=== PATIENT | female | born 1940 | race Caucasian/White ===

== ENCOUNTER 2024-06-23 14:40 | Inpatient (IN) | payer OTHER, BC ==
[2024-06-23 16:09] VITALS: BMI 17.8
[2024-06-23] MEDS ORDERED: HYDRALAZINE HCL 25 MG TABLET PO PRN (16:30)
[2024-06-23] MEDS ORDERED: CALM GUMMIES PO PRN (16:34)
[2024-06-23] MEDS ORDERED: CETIRIZINE HCL 5 MG TABLET PO PRN (16:36)
[2024-06-23] MEDS ORDERED: POLYETHYL GLY 3350 17 GM/DOSE PO PRN (16:37)
[2024-06-23] MEDS ORDERED: LACTULOSE 20 GM/30 ML UCUP PO PRN (16:38)
[2024-06-23] MEDS: SENOSIDES 8.6 MG TAB PO SCH (20:02)
[2024-06-23] MEDS: ZINC OXIDE 20% OINTMENT 60gm TOP SCH (20:02)
[2024-06-23] MEDS: IBUPROFEN 200 MG TAB PO PRN (20:11)
[2024-06-24 05:28] LABS: Absolute Eosinophils 0.4 K/uL (0-0.5); Absolute Lymphocytes (CBC) 1.8 K/uL (0.7-4.9); Absolute Monocytes 0.5 K/uL (0.1-1.3); Absolute Neutrophil 2.6 K/uL (1.8-8.0); Basophils % 0.8 % (0-1.3); Eosinophils % 7.4 % (0-4.4); Hematocrit 29.5 % (36.0-45.0); Hemoglobin 10.1 g/dL (12.0-15.0); Lymphocytes % 33.7 % (15.3-44.8); MCH 30.8 pg (27.0-35.0); MCHC 34.2 g/dL (32.0-36.0); MCV 90.1 fL (80-100); MPV 7.8 fL (7.6-11.3); Monocytes % 10.1 % (3.3-12.3); Nucleated Red Blood Cells % 0.1 % (0-0); Platelets 209 thou/uL (152-406); RBC Red Blood Cell Count 3.28 M/uL (3.86-4.86); Red Cell Distribution Width 15.2 % (12.1-15.2)
[2024-06-24 05:56] LABS: Albumin 2.8 g/dL (3.4-5.0); Anion Gap 5.3 mEq/L (5.0-15.0); Magnesium 2.2 mg/dL (1.6-2.4); Potassium 4.3 mEq/L (3.5-5.1); Prealbumin 14.5 mg/dL (20-40)
[2024-06-24] MEDS: ENOXAPARIN 30 MG/0.3 ML SQ SCH (07:29)
[2024-06-24 08:29] LABS: Specific Gravity 1.009 (1.005-1.030); Sqamous Epithelial None Seen /HPF (None Seen); Urine Bacteria <20 /HPF (<20); Urine Bilirubin NEGATIVE (Negative); Urine Blood Negative (Negative); Urine Clarity Clear (Clear); Urine Color Light-Yellow (Yellow); Urine Culture Reflex Order NOT NEEDED; Urine Glucose NEGATIVE (Negative); Urine Ketones NEGATIVE (Negative); Urine Micro Reflex YN NO BILL MICROSCOPIC; Urine Nitrite NEGATIVE (Negative); Urine Protein NEGATIVE (Negative); Urine RBC None Seen /HPF (None Seen); Urine Urobilinogen Normal (Normal); Urine WBC <5 /HPF (<5); Urine pH 6.5 (5.0-7.0)
[2024-06-24] MEDS: CYANOCOBALAMIN 1,000 MCG TAB PO SCH (09:32)
[2024-06-24] MEDS: LACTOBACILLUS/ACIDOPHILUS TAB PO SCH (09:32)
[2024-06-24] MEDS: ASCORBIC ACID 500 MG TABLET PO SCH (09:33)
[2024-06-24] MEDS: MULTIVITAMIN TAB PO SCH (09:33)
[2024-06-24] MEDS: VITAMIN D 5,000 UNIT CAP PO SCH (09:33)
[2024-06-24] MEDS: FERROUS SULFATE 325 MG TAB PO SCH (09:33)
[2024-06-24] MEDS: POTASSIUM CL SA 10 MEQ TAB PO SCH (09:33)
[2024-06-24] MEDS: LOSARTAN POTASSIUM 50 MG TABLET PO SCH (09:34)
[2024-06-24] MEDS: ACETAMINOPHEN 500 MG TAB PO PRN (09:36)
[2024-06-24] MEDS: TRAMADOL HCL 50 MG TAB PO PRN (12:34)
--- NOTE | 2024-06-24 12:51 | HP ---
Date of Admission: 06/23/2024 Date of service: 06/24/2024 Time Of Service: 9:00 a.m. Chief Complaint: "My back is hurting after I broke some bone." History Of Present Illness: Ms. Bradley is an 83-year-old patient with hypertension, osteoporosis, ESBL UTI, and multiple lumbar compression fractures, who had a kyphoplasty on multiple levels. She had a left hip fracture and surgical intervention and presented to [facility] on 04/12/2024 with lower back pain after falling. She was diagnosed again with several lumbar level fractures and underwent kyphoplasty of L3 levels on 06/[address] Chapa. She was then sent to [facility] for several weeks for physical therapy, but did not adequately return to baseline. She fell again, suffering a T12 compression fracture causing further physical decline. Dr. Chapa decided against surgical intervention and has been treating the patient for healing by secondary intention with therapy and pain management. She had an LSO brace placed. Due to her multiple falls and fractures, is currently getting depressed about her situation and would like to be able to return to her prior level of functioning. She does have issues including malnutrition, renal insufficiency, anemia, and continued need to significantly decrease her risk of falling. She is at high risk of multiple bone fractures due to osteoporosis. She was previously in the assisted living facility requiring minimum assistance with bed mobilization, donning and doffing of her LSO, and ambulating about 25 feet with a rolling walker. However, due to significant pain rated up to 7/10 while trying to standing and ambulating, she did have a significant debility and decline. Furthermore, she experienced an episode of left facial droop, which resolved fairly quickly, identified as a TIA and CT scan workup was negative. In addition, she has had orthostatic hypotension requiring IV fluids. She was eventually medically cleared for aggressive therapy and is now admitted to inpatient rehabilitation unit for physical, occupational, and speech therapy to help her return to her prior level of functioning and reduce risk of rehospitalization. Past Medical History: Includes hip fracture in the past with surgical intervention, multiple kyphoplasties at multiple levels, hypertension, osteoporosis, ESBL UTI, and dehydration. X-ray/imaging: Chest x-ray on 06/14, no acute pulmonary process. Head CT on 06/16, unremarkable noncontrast head CT scan and CT scan of the spine shows a compression deformity at T12 with fracture cleft paralleling the superior endplate without significant height loss. There is mild retropulsion of the posterior superior endplate into the central canal measuring 2-3 mm. Allergies: NO KNOWN DRUG ALLERGIES. Medications: Tylenol 500 mg every 6 hours as needed, vitamin C 500 mg daily, Tums 500 mg twice daily, Zyrtec 10 mg daily, vitamin D 5000 units daily, B12 1000 mcg daily, Lovenox 30 mg subcutaneously daily, ferrous sulfate 325 mg daily, Apresoline 25 mg 3 times daily, Motrin 400 mg 4 hours as needed, Lactinex 1 tablet daily, lactulose 20 g daily, lidocaine patch apply topically daily to the T12 lumbar region, Cozaar 25 mg daily, Milk of Magnesia 30 mg daily as needed, melatonin 6 mg at bedtime and as needed, Centrum Silver 1 tablet daily, Zofran 4 mg daily, Glycolax 17 g daily, potassium 20 mEq daily, Senokot 8.6 mg twice daily, zinc oxide 20% apply topically twice daily. Family History: Noncontributory. Social History: As noted, she did live in assisted living facility and is hoping to return to her prior level of functioning. Code Status: Full code. Laboratory Studies: White blood cell count 5.4, hemoglobin 10.1, platelets 209, neutrophils 48. Sodium 141, potassium 4.3, chloride 110, carbon dioxide 30, BUN 21, creatinine 0.95, glucose 90, calcium 8.9. Magnesium 2.2. Albumin 2.8, prealbumin 14.5. Urinalysis is completely normal. Current Level Of Functioning: Currently, Ms. Bradley is at setup assistance for eating. Oral hygiene is contact guard. Toileting, moderate assistance. Showering, maximal assistance. Upper body dressing, moderate assistance. Lower body dressing at a maximum assistance level. Donning and doffing footwear, maximum assistance. Rolling left to right, moderate assistance. Sit to stand transfer, moderate assistance. Lying to sitting on side of bed, moderate assistance. Xkx-hy-mfcot transfer from bed to chair and to toilet, moderate assistance. Ambulation, she was at a moderate assistance level with a rolling walker ambulated 25 feet. Review of Systems: Denies any fevers or chills. No nausea or vomiting. Admits to the moderate back pain and knee pain. Some diffuse weakness in the legs and arms, mild shortness of breath. Otherwise, mild depressive symptoms and no other positives on the systems review. Physical Examination: Vital Signs: Blood pressure 124/56, pulse of 73, respiratory rate 16, temperature 97.4. General: Ms. Bradley is sitting in a chair. She is doing therapy. She had just come back from outside. She appear slightly underweight. BMI is actually 17.8 with a weight of 170 pounds, height of 5 feet 8. HEENT: Otherwise, she is normocephalic, atraumatic. Sclerae appear anicteric. Oropharynx pink, moist. Neck: Supple. Chest: Clear. Musculoskeletal: She does have a scoliotic posture with her curvature to the left and then from the mid spine and curving back towards the right and otherwise intact. Lack of hemostasis. She does have mild bruising. Her strength is diffusely weak around 3 to 4/5 proximally and distally in the lower and upper extremities. Decreased stocking glove loss to light touch temperature. Rehab And Medical Assessment And Plan: Ms. Bradley is admitted to the inpatient rehabilitation unit with impairment category 09, orthopedic. Her impairment group code is 08.9, other orthopedic. Etiologic diagnosis T12 compression fracture. Her comorbidities are anemia, debility, decreased mobility, decreased physical functioning, depression, hypertension, recurrent falls with multiple lumbar fractures, status post kyphoplasty, and renal insufficiency. Plan: 1. She will have physical, occupational, and speech therapy for 3.5 hours, 5 of 7 days. We will address her pain with Tylenol and lidocaine patch. May add tramadol and very gentle amount or low-dose [place] as needed. For issues of DVT prophylaxis will be Lovenox 30 mg subcutaneously daily. For her anemia, ferrous sulfate 325 mg daily, Apresoline for hypertension, and addressing partly fluid management. Vitamin D for low vitamin D level. She has many probiotics on board. 2. Continue cellulose for her constipation lidocaine patch for pain, Cozaar added for hypertension control. She has Milk of Magnesia, Zofran for nausea, potassium replacement on board, zinc oxide to help with immune function. Comorbidities That Are Impacting Rehabilitation: She is significantly debilitated and has had advanced osteoporosis with multiple fractures occurring very easily, especially in the lumbar region. She does have a TLSO brace in place that we will continue. She is out of bed and mobilizing. Fall precautions are strictly adhered to as if she falls, she has a high chance of more bone fractures. She is somewhat depressed and may consider making adjustments and changes to the medication that would include antidepressant medication such as Cymbalta, perhaps may start 20 mg daily. She is in assisted living at this point. She may require a lot of help if she is to be discharged back to that facility. She is at high risk of continued falls. May have to go to retirement. However, the goal will be to go back to assisted living and as independent as possible with therapy to continue. Rehab Specific Plan: Ms. Bradley will have physical, occupational, and speech therapy to help with her ability to transfer from bed to chair, to a wheelchair, to a walker, to toilet, and to shower; to perform toileting and showering, to dress upper and lower body, and donning and doffing footwear. Speech will help her with making some decisions, taking medications appropriately, making safe decisions in terms of her transfers and mobilization using a walker properly and helping mitigate against fall risk. Ms. Bradley has a good understanding of the process of admission to the inpatient rehabilitation facility, how she will benefit from physical, occupational, and speech therapy. She will have 24 hours a day, 7 days a week skilled rehabilitation nursing to address her acute issues and communicate with physician. She will have daily physician evaluation and management for integrating her physical therapy with her medical issues and adjusting appropriately so she will have a typical benefit of inpatient rehabilitation. She will have social service evaluation and management for discharge planning, home equipment, continuing therapy, and physician followup. If need be, additional help from the hospitalist service, cardiology service, pulmonary service, and orthopedic service will be consulted. Barriers To Discharge: Currently, she has advanced osteoporosis with high risk of multiple bone fractures and she has had multiple after falling, so fall precautions should be strictly adhered to and wherever she goes, she would likely require a lot of help to reduce her risk of falls and would benefit from 24 hours supervision at least as she goes home. Length Of Stay: About 14 days. Disposition: For her to be back home with assisted living. Prognosis: Good. Rehab Specific Goals: 1. Become independent with upper and lower body dressing, donning and doffing of footwear. 2. Independently mobilize a wheelchair 250 feet. 3. Independently or at least close to as possible mobilize a rolling walker household distances around 50 feet. She may have difficulty going up and down steps, perhaps with assistance up and down 5 steps. 4. To be able to perform all cognitive functioning as independently as possible. The above goals were reviewed with Ms. Bradley. She is in agreement. By signing this document, I acknowledge I first performed a full physical examination on Ms. Bradley no later than 24 hours after her admission to the inpatient rehabilitation facility and determined that she is able to tolerate the above course of treatment at an intensive level for reasonable period of time. A detailed individualized plan of care for her will be completed by hospital day 4 based on the preadmission screen, history and physical, and therapy evaluations. HUGO Voice ID: [id number] JEANNETTE
[2024-06-24] MEDS: MAGNESIUM HYDROXIDE 8% 30 ML PO PRN (13:41)
[2024-06-24] MEDS: GABAPENTIN 100 MG CAP PO SCH (13:41)
[2024-06-24] MEDS: LIDOCAINE 4% PATCH TOP ONE (13:41)
[2024-06-24] MEDS: ENSURE PLANT-BASED PROTEIN VANILLA 330 ML CAN PO SCH (19:51)
[2024-06-25] MEDS: LIDOCAINE 4% PATCH TOP SCH (10:06)
[2024-06-25] MEDS: POTASSIUM CL SA 10 MEQ TAB PO SCH (10:07)
--- NOTE | 2024-06-25 14:41 | RAD REPORT ---
EXAM: XR of the abdomen HISTORY: Abdominal pain constipation COMPARISON: None FINDINGS: XR of the abdomen shows a nonspecific, nonobstructive bowel gas pattern. Moderate stool ret ention throughout the colon. [place] nonspecific calcification to the left of the L3 vertebral body may be a renal stone. Cholecystectomy clips. Vertebroplasty cement is noted at L1, L2 and L4. Proximal left humerus hardware. IMPRESSION: Prominent diffuse stool retention compatible with constipation. [place] stone suspected probably in the genitourinary system to the left of the L3 vertebral body.
[2024-06-25] MEDS: MELATONIN 3 MG TABLET PO PRN (20:48)
[2024-06-25] MEDS: FLEET ENEMA ADULT PR ONE (20:52)
--- NOTE | 2024-06-25 23:03 | PN ---
Date of Progress Note: 06/25/2024 Time Of Service: 1:35 p.m. Subjective: Ms. Bradley is reporting some pain in the right lower quadrant area. She did have pain p atch in the left and in the back where she has T12 compression fracture and that has improved. She i s still, however, having some difficulty as she does have a back brace in place that does hold high o n the chest and she has kyphosis which is making it somewhat painful as she mobilizes. She does requ est frequently for the brace to be removed. Objective: Some mild arthralgias, myalgias. Again, pain in the right lower quadrant. Some difficul ty moving legs and arms and mild depression of her mood. Physical Examination: Vital Signs: Blood pressure in terms of orthostatics while lying 144/70, pulse 54, while sitting 138 /67, pulse 61, and while standing 124/60, pulse 73. No significant symptomatic complaints there. In terms of her examination, she does have kyphotic posture. HEENT: She is otherwise normocephalic, atraumatic. Neuro: She does have back brace in place and has some scoliosis where she leans towards the left as she is sitting in a chair. Mild edema in the lower extremities, unchanged. Laboratory Studies: No new laboratory studies compared to yesterday. Today, a KUB study was done as the patient was worried about retained stool. The study did identify prominent diffuse stool retent ion compatible with constipation. There is an oblong stone suspected probably in the genitourinary s ystem on the left at the L3 vertebral body. Vertebroplasty cement noted at L1, L2, and L4 and cholec ystectomy clips noted to be in place. Progress Made With Physical And Occupational Therapy: Today with physical therapy, she ambulated 50 feet and 100 feet with a rolling walker with partial assistance. She did attempt to go up and down a ramp 10 feet, up and down 5 feet, moderate assistance required. She did parallel bars 3 rounds 1 mi nute intervals and she did 30 feet back to the room using a rolling walker with partial assistance. With occupational therapy, continue to improve lower extremity strength and upper extremity strength with exercises. Assessment: Ms. Bradley is an 83-year-old patient admitted to the rehabilitation unit with T12 compre ssion fracture. She has multiple fractures treated by kyphoplasty, but the T12 is healing by seconda ry intention. She does have constipation per KUB and may benefit from a Fleet enema. Her comorbidit ies do include decreased mobility, decreased physical functioning, depression, hypertension, recurren t falls, of course lumbar fracture, status post kyphoplasty, and renal insufficiency. Plan: She will continue with physical and occupational therapy along with speech therapy, which day, she actually did recall 3 of 3 items to remember after 6 minutes and she did do convergent naming of concrete categories with 90% accuracy and minimum assistance. All those of course will be continued . Her comorbid conditions addressed again, DVT prophylaxis with Lovenox, Ensure Enlive for malnutrit ion, gabapentin for neuropathic pain, hydralazine for fluid and blood pressure control, Cozaar for bl ood pressure control, melatonin for insomnia, Centrum Silver also on board, tramadol and Tylenol for pain. MARIALUISA/CHANDAL Voice ID: [id number] Report ID: [id number]
[2024-06-26 06:43] LABS: Absolute Eosinophils 0.4 K/uL (0-0.5); Absolute Lymphocytes (CBC) 2.2 K/uL (0.7-4.9); Absolute Monocytes 0.7 K/uL (0.1-1.3); Absolute Neutrophil 2.6 K/uL (1.8-8.0); Basophils % 0.6 % (0-1.3); Hematocrit 31.5 % (36.0-45.0); Hemoglobin 10.3 g/dL (12.0-15.0); Lymphocytes % 36.5 % (15.3-44.8); MCHC 32.8 g/dL (32.0-36.0); MCV 91.4 fL (80-100); MPV 9.3 fL (7.6-11.3); Monocytes % 12.3 % (3.3-12.3); Neutrophils % 43.6 % (41.7-73.7); Platelets 178 thou/uL (152-406); RBC Red Blood Cell Count 3.45 M/uL (3.86-4.86)
[2024-06-26 07:00] LABS: Albumin 3.1 g/dL (3.4-5.0); Anion Gap 7.6 mEq/L (5.0-15.0); Magnesium 2.4 mg/dL (1.6-2.4); Potassium 4.6 mEq/L (3.5-5.1); Prealbumin 18.1 mg/dL (20-40)
[2024-06-26] MEDS: LIDOCAINE 4% PATCH TOP SCH (10:17)
[2024-06-26] MEDS: NA CHLORIDE 0.9% 1,000 ML IV SCH ×2 (17:00→20:34)
[2024-06-26] MEDS ORDERED: NA CHLORIDE 0.9% 250 ML IV PRN (18:30)
[2024-06-26] MEDS: NA CHLORIDE 0.9% 250 ML IV ONE (20:18)
[2024-06-27 06:52] LABS: Anion Gap 6.5 mEq/L (5.0-15.0); Magnesium 2.1 mg/dL (1.6-2.4); Potassium 4.5 mEq/L (3.5-5.1)
--- NOTE | 2024-06-27 13:31 | P.RH.PN ---
Estimated Length of Stay: 14 Expected Discharge Date: 07/01/24 Discharge Disposition Plan: Home Family Support: Yes Vital Signs: Last Vital Signs Temp 97.8 F 06/27/24 08:00 Pulse 62 06/27/24 08:00 Resp 16 06/27/24 08:00 BP 156/76 H 06/27/24 08:00 Pulse Ox 98 06/27/24 08:00 Laboratory: Laboratory Last Values WBC 6.00 thou/uL (4.3-10.9) 06/26/24 04:34 RBC 3.45 M/uL (3.86-4.86) L 06/26/24 04:34 Hgb 10.3 g/dL (12.0-15.0) L 06/26/24 04:34 Hct 31.5 % (36.0-45.0) L 06/26/24 04:34 MCV 91.4 fL (80-100) 06/26/24 04:34 MCH 30.0 pg (27.0-35.0) 06/26/24 04:34 MCHC 32.8 g/dL (32.0-36.0) 06/26/24 04:34 RDW 15.0 % (12.1-15.2) 06/26/24 04:34 Plt Count 178 thou/uL (152-406) 06/26/24 04:34 MPV 9.3 fL (7.6-11.3) 06/26/24 04:34 Neutrophils % 43.6 % (41.7-73.7) 06/26/24 04:34 Lymphocytes % 36.5 % (15.3-44.8) 06/26/24 04:34 Monocytes % 12.3 % (3.3-12.3) 06/26/24 04:34 Eosinophils % 7.0 % (0-4.4) H 06/26/24 04:34 Basophils % 0.6 % (0-1.3) 06/26/24 04:34 Absolute Neutrophils 2.6 K/uL (1.8-8.0) 06/26/24 04:34 Absolute Lymphocytes 2.2 K/uL (0.7-4.9) 06/26/24 04:34 Absolute Monocytes 0.7 K/uL (0.1-1.3) 06/26/24 04:34 Absolute Eosinophils 0.4 K/uL (0-0.5) 06/26/24 04:34 Absolute Basophils 0.0 K/uL (0-0.5) 06/26/24 04:34 Sodium 139 mEq/L (136-145) 06/27/24 06:08 Potassium 4.5 mEq/L (3.5-5.1) 06/27/24 06:08 Chloride 108 mEq/L (98-107) H 06/27/24 06:08 Carbon Dioxide 29 mEq/L (21-32) 06/27/24 06:08 Anion Gap 6.5 mEq/L (5.0-15.0) 06/27/24 06:08 BUN 23 mg/dL (7-18) H 06/27/24 06:08 Creatinine 0.82 mg/dL (0.55-1.02) 06/27/24 06:08 Est GFR (CKD-EPI) 72 ml/min (=/>90) L 06/27/24 06:08 Glucose 79 mg/dL (74-106) 06/27/24 06:08 Calcium 9.7 mg/dL (8.5-10.1) D 06/27/24 06:08 Magnesium 2.1 mg/dL (1.6-2.4) 06/27/24 06:08 Albumin 3.1 g/dL (3.4-5.0) L 06/26/24 04:34 Prealbumin 18.1 mg/dL (20-40) L 06/26/24 04:34 Urine Color Light-yellow (Yellow) 06/24/24 07:40 Urine Clarity Clear (Clear) 06/24/24 07:40 Urine pH 6.5 (5.0-7.0) 06/24/24 07:40 Ur Specific [place] 1.009 (1.005-1.030) 06/24/24 07:40 Glucose (UA)(Auto) Negative (Negative) 06/24/24 07:40 Urine Ketones Negative (Negative) 06/24/24 07:40 Urine Blood Negative (Negative) 06/24/24 07:40 Urine Nitrite Negative (Negative) 06/24/24 07:40 Urine Bilirubin Negative (Negative) 06/24/24 07:40 Urine Urobilinogen Normal (Normal) 06/24/24 07:40 Ur Leukocyte Esterase Negative [place]/uL (Negative) 06/24/24 07:40 Urine RBC None seen /HPF (None Seen) 06/24/24 07:40 Urine WBC <5 /HPF (<5) 06/24/24 07:40 Ur Squamous Epith Cells None seen /HPF (None Seen) 06/24/24 07:40 Urine Bacteria <20 /HPF (<20) 06/24/24 07:40 Hyaline Casts 0-5 /LPF (None Seen) 06/24/24 07:40 Urine Culture Reflexed Not needed 06/24/24 07:40 Urine Total Protein Negative (Negative) 06/24/24 07:40 Weight: 117 lb Wound Present: No Closed Surgical Incision Present: No Negative Pressure Wound Therapy Present: No Physician Update: Labs reviewed and are stable. BIMS 13, SLUMS 21. Difficulty with vision due to macular degeneration. Chronic cognitive impairment. Transfers at SBA in and out of bed. RW to bath room and covered 20'. She did better with OT today. Toilet transfers and lower body dressing with contact guard assistance. Summary: Patient's care plan and [facility] goals have been reviewed and revised as necessary. Please see the Rehabilitation Signature page for all necessary signatures.
[2024-06-27] MEDS: DULOXETINE 20 MG CAP PO SCH (21:52)
[2024-06-27] MEDS: GABAPENTIN 100 MG CAP PO SCH (21:53)
[2024-06-28] MEDS: MIDODRINE HCL 5 MG TABLET PO SCH (08:41)
--- NOTE | 2024-06-30 14:23 | RAD REPORT ---
EXAMINATION: ONE VIEW CHEST XR CLINICAL INDICATION: Female, 83 years old.,R/O TB for Assisted Living Placement TECHNIQUE: Frontal chest projection is submitted. Examination is limited by patient positioning and t echnique. COMPARISON: 06/25/2024 abdomen radiographs FINDINGS: The lungs are diffusely emphysematous but grossly clear. No pneumothorax or sizable effusion. The he art is normal in size. IMPRESSION: Sequelae of COPD, without other suspicious intrathoracic findings.
[2024-06-30] MEDS: LOSARTAN POTASSIUM 50 MG TABLET PO SCH (20:14)
[2024-06-30] MEDS: TRAMADOL HCL 50 MG TAB PO PRN (20:14)
[2024-06-30] MEDS: ONDANSETRON 4 MG (ODT) TAB PO PRN (20:19)
[2024-06-30] MEDS: CALCIUM CARBONATE CHEW 500MG TAB PO PRN (20:19)
--- NOTE | 2024-06-30 23:09 | PN ---
Date of Progress Note: 06/30/2024 Time Of Service: 1:20 p.m. Subjective: Ms. Bradley is resting in her room in a chair. Therapist at the bedside. She does repor t her leaning to the left which is due to her scoliosis and multiple fractures in the vertebral regio n and she does have kyphosis. She does have a back brace in place. She does say that there is some pain in the back, which is up to about 7 to 8/10, at times even when lying down. Pain seems to be wo rse in the morning and potentially as she has not had pain medications overnight and so pain medicati ons will be adjusted as early as possible in the morning prior to beginning her therapy. Objective: As noted, pain in the back as rated above, some arthritic pain in the knees as well. Oth erwise, denies any fevers, chills, nausea, and vomiting. Physical Examination: Vital Signs: Blood pressure 142/69, pulse 58, respiratory rate 18, temperature 98, oxygen saturation 96%. General: Again, Ms. Bradley is sitting in a chair with speech therapist in front. HEENT: She is normocephalic, atraumatic. Sclerae anicteric. 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 Still appears to be somewhat underweight with BMI of 17.8. Otherwise, no new deficits. Laboratory Studies: No new laboratory studies. X-ray/imaging: There was an x-ray done earlier today. The study showed sequelae of COPD without oth er suspicious intrathoracic findings. Lungs are diffusely emphysematous, but grossly clear. Progress Made With Physical, Occupational, And Speech Therapy: Today, she ambulated 100 feet twice w ith a rolling walker, another 75 feet with minimum to contact guard assistance. Mobilized a wheelcha ir 75 feet with standby assistance and verbal cues. Performed bilateral feet and lower extremity exe rcises 20 reps. She did sit to stand transfers with minimum assistance and verbal cues. With occupa tional therapy, assistance from bed to wheelchair transfer with contact guard assistance, performed s howering with contact guard assistance at that level, especially to clean the buttocks area. With sp eech, she did improve short-term recall, did recall 3 unrelated pictures using memory strategies afte r 5-minute delay. Recalled 2 of 3 on the first attempt, second and third attempts. Assessment: Ms. Bradley is an 83-year-old patient in the rehabilitation unit with T12 compression fra cture. She has scoliosis, kyphosis, and significant back pain where she has multiple vertebral compr ession fractures that were treated with kyphoplasty. The T12 level is healing by secondary intention . She has decreased mobility, decreased physical functioning, malnutrition, hypertension, renal insu fficiency. Plan: 1.She will continue with physical, occupational, and speech therapy for 3.5 hours, 5 of 7 days. 2.We will continue Tylenol and tramadol for pain that is along with gabapentin. Continue ferrous hernandez lfate for iron deficiency anemia. Continue Lovenox for DVT prophylaxis, duloxetine for neuropathic p ain and mood improvement, vitamin C and calcium on board along with B12 and vitamin D. She has prote in supplementation for malnutrition, Apresoline and Cozaar to support blood pressure control and mido drine to help decrease her autonomic dysfunction with a drop in her blood pressure that helps to mini david that drop. She is on potassium 10 mEq daily for potassium replacement, Senokot for constipation . LB/MODL Voice ID: [id number] Report ID: [id number]
[2024-07-01 06:14] LABS: Anion Gap 8.5 mEq/L (5.0-15.0); Potassium 4.5 mEq/L (3.5-5.1)
[2024-07-01 06:49] LABS: Absolute Basophils 0.1 K/uL (0-0.5); Absolute Eosinophils 0.4 K/uL (0-0.5); Absolute Lymphocytes (CBC) 2.7 K/uL (0.7-4.9); Absolute Monocytes 0.9 K/uL (0.1-1.3); Absolute Neutrophil 5.2 K/uL (1.8-8.0); Eosinophils % 4.4 % (0-4.4); Hematocrit 32.5 % (36.0-45.0); Hemoglobin 10.9 g/dL (12.0-15.0); Lymphocytes % 28.9 % (15.3-44.8); MCH 30.7 pg (27.0-35.0); MCHC 33.4 g/dL (32.0-36.0); MCV 91.9 fL (80-100); MPV 8.7 fL (7.6-11.3); Monocytes % 9.3 % (3.3-12.3); Neutrophils % 56.4 % (41.7-73.7); Platelets 175 thou/uL (152-406); RBC Red Blood Cell Count 3.53 M/uL (3.86-4.86); Red Cell Distribution Width 15.3 % (12.1-15.2)
[2024-07-01] MEDS: APIXABAN 2.5 MG TABLET PO SCH (08:29)
[2024-07-01] MEDS: GABAPENTIN 300 MG CAP PO SCH (20:03)
[2024-07-01] MEDS: TRAMADOL HCL 50 MG TAB PO PRN (20:03)
--- NOTE | 2024-07-01 22:01 | PN ---
Date of Progress Note: 07/01/2024 Time Of Service: 1:20 p.m. Subjective: Ms. Bradley reports significant pain in the back and left lower quadrant today. Says ciarra n is most 7 up to 8/10 and even when trying to rest. Her pain medications were adjusted yesterday an d again as she reported more pain, pain medications have been adjusted. She is now on gabapentin up to 300 mg twice daily, initially was 100 mg twice daily. She has tramadol 50 mg increased to every 4 hours and Tylenol Extra Strength every 6 hours. May consider [place] if the patient's pain is not man aged any better. Objective: Again, pain in the back and the left flank and in the both knees, but more significantly again on the left side. Physical Examination: Vital Signs: Blood pressure 144/70, pulse of 54 while lying, while standing 124/56, pulse of 73. General: Ms. Bradley is resting comfortably in a chair, although she is in some mild distress because of the pain in the back and the left lower flank region. Neuro: She has scoliosis and kyphosis with leaning to the left and forward with pectus excavatum shayy earance. Moderate diffuse weakness in upper and lower extremity and pain limitations as noted. Laboratory Studies: White blood cell count 9.3, hemoglobin 10.9, platelets 175. Sodium 138, potassi um 4.5, chloride 104, BUN 26, creatinine 1.15, which increased from 0.82 four days ago, and her GFR i s down to 48. She is somewhat dehydrated. Glucose 82 and calcium 9.5. Progress Made With Physical, Occupational, And Speech Therapy: Today with her physical therapy, mult iple [id number]-[id number] transfers with minimum assistance, verbal cues. Again, there was significant pain. She was felt tired from therapy. She ambulated 70 feet twice, 125 feet once, 150 feet once, and 90 feet once with contact guard assistance. Mobilized a wheelchair 125 feet with standby assistance an d verbal cues. With occupational therapy, supervision for [id number]-[id number] transfers and edge of bed, w heelchair transfer with a rolling walker as well, minimum assistance for toilet hygiene. With speech , short-term recall was targeted through recalling unrelated pictures. She recalled 2 of 3 after 3 m inutes on the first attempt and 3 of 3 after 3 minutes on a second attempt. Cause effect relationshi p was described by the patient with 100% accuracy and minimum assistance. Assessment: Ms. Bradley is an 83-year-old patient in the rehabilitation unit with T12 compression fra cture from which she still has significant pain in the back, and pain medications have been adjusted on a daily basis to help manage her pain. Multiple modalities have been applied including patch, ivana romodulator, tramadol, Tylenol. May consider [place] if the pain is not better controlled. Of course, she has scoliosis, kyphosis, multiple compression fractures in the vertebral region, and a T12 compr ession fracture that is healing by secondary intention. She has malnutrition, hypertension, renal in sufficiency. Plan: She will continue with physical, occupational, and speech therapy for 3.5 hours, 5 of 7 days. Again, adjust her gabapentin to 300 mg twice daily. Continue ferrous sulfate, Lovenox, Apresoline, and Cozaar. Continue B12 and vitamin D. Potassium replacement. Midodrine for pressure support. We will encourage hydration as the patient is developing some mild dehydration. LB/MODL Voice ID: [id number] Report ID: [id number]
[2024-07-02] MEDS: ACETAMINOPHEN 500 MG TAB PO PRN (08:11)
[2024-07-03 06:48] LABS: Absolute Eosinophils 0.6 K/uL (0-0.5); Absolute Lymphocytes (CBC) 2.4 K/uL (0.7-4.9); Absolute Monocytes 0.7 K/uL (0.1-1.3); Absolute Neutrophil 3.2 K/uL (1.8-8.0); Basophils % 0.4 % (0-1.3); Eosinophils % 8.1 % (0-4.4); Hematocrit 30.2 % (36.0-45.0); Hemoglobin 10.1 g/dL (12.0-15.0); Lymphocytes % 34.4 % (15.3-44.8); MCH 30.6 pg (27.0-35.0); MCHC 33.5 g/dL (32.0-36.0); MCV 91.2 fL (80-100); MPV 8.7 fL (7.6-11.3); Monocytes % 10.5 % (3.3-12.3); Neutrophils % 46.6 % (41.7-73.7); Platelets 196 thou/uL (152-406); RBC Red Blood Cell Count 3.32 M/uL (3.86-4.86); Red Cell Distribution Width 15.1 % (12.1-15.2)
[2024-07-03 07:06] VITALS: TEMP 97.9
[2024-07-03 07:11] LABS: Albumin 3.1 g/dL (3.4-5.0); Anion Gap 6.6 mEq/L (5.0-15.0); Magnesium 2.1 mg/dL (1.6-2.4); Potassium 4.6 mEq/L (3.5-5.1); Prealbumin 15.2 mg/dL (20-40)
[2024-07-03 08:14] VITALS: BP 136/63
--- NOTE | 2024-07-14 08:25 | DS ---
Date of Discharge: 07/03/2024 Allergies: NO KNOWN DRUG ALLERGIES. Discharge Condition: Good. Discharge Diagnoses: T12 compression fracture, decreased mobility, decreased physical functioning, d epression, hypertension, recurrent falls with multiple lumbar fractures, kyphoplasty, renal insuffici ency, kyphosis. Discharge Medications: Zofran 8 mg every 4 hours as needed, vitamin B12 1000 mcg daily, vitamin D3 5 000 units daily, Cozaar 1 tablet daily, ibuprofen 400 mg every 4 hours as needed, calcium 500 mg twic e daily, vitamin C 1000 mg daily, lactobacillus 1 daily, ferrous sulfate 325 mg daily, Centrum Silver 1 tablet daily, Apresoline 25 mg 3 times daily, Tylenol 650 mg every 4 hours as needed, melatonin 6 mg at bedtime, lactulose 20 g daily as needed, senna 8.6 mg twice daily, potassium 20 mEq daily, Zyrt ec 10 mg daily, tramadol 50 mg every 4 hours as needed, lidocaine patch apply 2 topically daily, and gabapentin 300 mg twice daily. Laboratory Studies: White blood cell count 6.8, hemoglobin 10.1, platelets 196. Sodium 140, potassi um 4.3, chloride 105, carbon dioxide 33, BUN 25, creatinine 0.94, glucose 83, calcium 9.4, magnesium 2.1, albumin 15.2, prealbumin 3.1. Urinalysis completely normal. X-ray/imaging: Chest x-ray was done on 06/30. The study showed sequelae of COPD without any suspici ons intrathoracic findings. KUB was done on 06/25/2024. There is prominent diffuse stool retention compatible with constipation, oblong stone suspected, probably in the genitourinary system on the lef t at the level of the L3 vertebral body. Synopsis Of Events That Led To Admission: Ms. Bradley is an 83-year-old patient with medical problems as noted, she was seen at [facility] on 04/12/2024 with low back pain after falling. She was d iagnosed with several lumbar vertebral level fractures, underwent kyphoplasty of L3 on 06/[address] Chapa. She was sent to [facility] for physical therapy, but was not able to return to [facility]. She fell again and fractured at T12 level. Dr. Chapa declined surgical intervention at that oint, and she was put with back brace, LSO brace, and sent to rehab to heal by secondary intention al sheba with therapy and pain management. She did have as noted multiple issues including malnutrition, renal insufficiency, anemia, and required daily visit evaluation and management in addition to kyphos is and scoliosis. She was therefore admitted for physical and occupational therapy in the rehabilita tion unit. Hospital Course: Throughout hospital course, she did require significant adjustment of medications f or pain. She had pain in the abdominal area. She was seen to have retained stools. She was worked on for infection. No obvious infection ongoing was identified and she was able to progress with ther apy. Progress Made With Physical And Occupational Therapy: At the time of discharge, regarding her physic al therapy, she has of course increased kyphosis and scoliosis. She has a limiting factor, but she w as able to ambulate with a rolling walker 150 feet leveled on tile surfaces. She was able to go up a nd down 10 steps with bilateral handrails with fair tolerance. Wheelchair mobilization over 5 feet a nd car transfer was also done, but she did require some mod assist. It was of course for her to be d ischarged to an assisted living facility. Durable medical equipment needs were met. Regarding her o ccupational therapy, at time of discharge, she was able to go to the shower without limitations requi ring supervision, independent for eating, upper and lower body dressing independent, supervision for studying and reaching, minimum assistance she did her toileting. Regarding her speech, at time of di scharge, independent with comprehension, expression, and intelligibility was 100%. She had BIMS scor e of 13 and SLUMS score of 21. Followup: With spine surgeon and primary care physician as scheduled. MARIALUISA/ARLETTE Voice ID: [id number] Report ID: [id number]
== END 2024-07-03 11:15 | disposition home health service (06) | DRG 560 ==
LOC: 5TH 15:45
PROVIDERS: ADMIT Psychiatry & Neurology Neurology with Special Qualifications in Child Neurology; ATTEND Psychiatry & Neurology Neurology with Special Qualifications in Child Neurology
DX: S22.089D Unspecified fracture of T11-T12 vertebra, subsequent encounter for fracture with routine healing (principal); E46 Unspecified protein-calorie malnutrition; Z68.1 Body mass index [BMI] 19.9 or less, adult; I10 Essential (primary) hypertension; M81.0 Age-related osteoporosis without current pathological fracture; D64.9 Anemia, unspecified; I95.1 Orthostatic hypotension; E86.0 Dehydration; R53.81 Other malaise; K59.00 Constipation, unspecified; M41.9 Scoliosis, unspecified
CPT/HCPCS: 36415; 71045; 74018; 80048; 81001; 82040; 83735; 84134; 85025; 87086; 87088; 92523; 94010; 97110; 97116; 97129; 97161; 97165; 97530; 97542; J1650; J7030; J7050; Q0162

== ENCOUNTER 2024-07-16 15:28 | Inpatient (IN) | payer OTHER, BC ==
[2024-07-16] MEDS ORDERED: ONDANSETRON 4 MG/2 ML VIAL ONE ×2 (16:02→18:01)
[2024-07-16] MEDS ORDERED: DICYCLOMINE HCL 20 MG/2 ML AMP IM ONE (16:02)
[2024-07-16 16:13] LABS: Absolute Basophils 0.1 K/uL (0-0.5); Absolute Eosinophils 0.2 K/uL (0-0.5); Absolute Lymphocytes (CBC) 1.9 K/uL (0.7-4.9); Absolute Monocytes 0.5 K/uL (0.1-1.3); Absolute Neutrophil 6.2 K/uL (1.8-8.0); Basophils % 1.1 % (0-1.3); Eosinophils % 2.7 % (0-4.4); Hematocrit 36.8 % (36.0-45.0); Hemoglobin 12.2 g/dL (12.0-15.0); Lymphocytes % 21.3 % (15.3-44.8); MCH 30.7 pg (27.0-35.0); MCHC 33.1 g/dL (32.0-36.0); MCV 92.5 fL (80-100); MPV 7.8 fL (7.6-11.3); Monocytes % 5.2 % (3.3-12.3); Neutrophils % 69.7 % (41.7-73.7); Platelets 263 thou/uL (152-406); RBC Red Blood Cell Count 3.98 M/uL (3.86-4.86); Red Cell Distribution Width 14.2 % (12.1-15.2)
[2024-07-16 16:24] LABS: Albumin 3.5 g/dL (3.4-5.0); Albumin/Globulin Ratio 0.9 (1.1-1.8); Anion Gap 8.7 mEq/L (5.0-15.0); Bilirubin Total 0.4 mg/dL (0.2-1.0); Globulin 3.8 g/dL (2.3-3.5); Protein, Total 7.3 g/dL (6.4-8.2)
[2024-07-16 16:25] LABS: Potassium 4.7 mEq/L (3.5-5.1)
[2024-07-16] MEDS ORDERED: KETOROLAC 30 MG/ML INJ ONE (17:17)
--- NOTE | 2024-07-16 18:32 | RAD REPORT ---
EXAMINATION: CT Abdomen Pelvis W Contrast CLINICAL INDICATION: Female, 83 years old. ABD PAIN TECHNIQUE: CT abdomen and pelvis was performed, after the administration of IV contrast, as per depar tment protocol. Axial, sagittal and coronal reconstructions were obtained. One or more of the following dose reduction techniques were used: Automated exposure control, adjustment of the mA and k V according to patient size, and iterative reconstruction. Unless otherwise specified, incidental findings do not require dedicated imaging follow-up. COMPARISON: No prior exam. FINDINGS: LOWER CHEST: The visualized lung bases are clear. LIVER: Normal in size and contour. No focal lesion. BILIARY SYSTEM: Status post cholecystectomy. SPLEEN: Normal size. No focal lesion. PANCREAS: No mass, ductal dilation, or natty-pancreatic fluid. ADRENALS: Normal; no mass. KIDNEYS: Normal size and contour. No hydronephrosis. URINARY BLADDER: Unremarkable. GASTROINTESTINAL TRACT: Long segment small bowel dilation with air-fluid levels. The distal ileal seg ments demonstrate significantly reduced mucosal enhancement relative to the remainder of the small bowel. A proximal transition point is seen in the right lower quadrant, approximately on axial image 47/91, followed by a loop of distal ileum demonstrating prominent wall thickening. A second more distal transition point is seen on axial image 46. Mild free ascites throughout the abdomen. No evide nce of free air, or abscess. Distal colonic diverticulosis. APPENDIX: Normal appendix. LYMPH NODES: No lymphadenopathy. MUSCULOSKELETAL: Multilevel vertebral compression deformities, most pronounced at L1 and L2, with cor responding sequelae of vertebral augmentation at those levels as well as at L4. Mild superior endplate compression deformity at T12 as well, favored to be chronic. ADDITIONAL FINDINGS: None. IMPRESSION: Findings of distal high-grade small bowel obstruction. There are 2 transition points observed in the right lower quadrant, concerning for closed loop obstruction. A segment of distal ileum wall thickening is seen just distal to the proximal transition point, with reduced mucosal enhancement zachary ng the long segment of distal ileum between the 2 transition points, which may relate to the closed loop pathology resulting in vascular compression rather than thrombotic ischemia. Mild free ascites. Other incidental findings as above. THIS REPORT CONTAINS FINDINGS THAT MAY BE CRITICAL TO PATIENT CARE. The findings were verbally commun icated via telephone to Ambreen Springer M.D. on 07/16/2024 6:21 PM.
[2024-07-16] MEDS ORDERED: MORPHINE 2 MG/ML SYR ONE (19:02)
--- NOTE | 2024-07-16 19:52 | ER ---
Nurse's Notes [facility] Name: Chapis Bradley Age: 83 yrs Sex: Female : 1940 Arrival Date: 07/16/2024 Time: 15:28 Bed 20 Private MD: Diagnosis: Small Bowel Obstruction Presentation: 07/16 15:31 Chief complaint: EMS states: toned out for abdominal pain, mid abdomen and radiates to me1 right. Last normal bm was about 2 days ago. Denies n/v. Coronavirus screen: Vaccine status: Patient reports receiving the 2nd dose of the covid vaccine. Ebola Screen: No symptoms or risks identified at this time. Initial Sepsis Screen: Does the patient meet any 2 criteria? No. Patient's initial sepsis screen is negative. Does the patient have a suspected source of infection? No. Patient's initial sepsis screen is negative. Risk Assessment: Do you want to hurt yourself or someone else? Patient reports no desire to harm self or others. Onset of symptoms was July 15, 2024. 15:31 Method Of Arrival: EMS: [facility] [place] 15:31 Acuity: MIREYA 3 me1 Triage Assessment: 15:36 General: Appears. me1 15:38 General: Appears uncomfortable, well groomed, well developed, well nourished, Behavior me1 is calm, cooperative, appropriate for age, Reports abdominal pain since yesterday. hx constipation. denies n/v. Pain: Complains of pain in abdomen Pain does not radiate. Pain currently is 8 out of 10 on a pain scale. Quality of pain is described as crampy, Pain began gradually, 1 day ago. Is continuous. EENT: No signs and/or symptoms were reported regarding the EENT system. Neuro: Level of Consciousness is awake, alert, obeys commands, Oriented to person, place, time, situation, Appropriate for age. Cardiovascular: Patient's skin is warm and dry. Respiratory: Airway is patent Trachea midline Respiratory effort is even, unlabored, Respiratory pattern is regular, symmetrical. GI: No signs and/or symptoms were reported involving the gastrointestinal system. : No signs and/or symptoms were reported regarding the genitourinary system. Derm: Skin is intact, is healthy with good turgor, Skin is pink, warm \T\ dry. Musculoskeletal: No signs and/or symptoms reported regarding the musculoskeletal system. Historical: - Allergies: 15:36 No Known Allergies; me1 - PMHx: 15:36 compression fx T12; Hypertensive disorder; chronic constipation; Depressive disorder; me1 left eye macular degeneration; - Immunization history:: Adult Immunizations up to date. - Infectious Disease History:: Denies. - Social history:: Smoking status: Patient denies any tobacco usage or history of. Screenin:40 [facility] ED Fall Risk Assessment (Adult) History of falling in the last 3 months, me1 including since admission No falls in past 3 months (0 pts) Confusion or Disorientation No (0 pts) Intoxicated or Sedated No (0 pts) Impaired Gait Yes (1 pt) Mobility Assist Device Used Yes (1 pt) Altered Elimination No (0 pt) Score/Fall Risk Level 0 - 2 = Low Risk Maintained a safe environment, Provided non-skid footwear, Hourly rounding (assess needs \T\ fall precautionary measures) done. Abuse screen: Denies threats or abuse. Nutritional screening: No deficits noted. Tuberculosis screening: No symptoms or risk factors identified. Assessment: 15:40 General: See triage assessment. . me1 Vital Signs: 15:31 BP 149 / 86; Pulse 73; Resp 17; Temp 98.2; Pulse Ox 100% ; Weight 48.08 kg; Height 5 me1 ft. 8 in. ; Pain 8/10; 16:00 BP 135 / 76; Pulse 75; Resp 16; Pulse Ox 99% ; me1 16:38 Pain 8/10; me1 17:00 BP 147 / 96; Pulse 73; Resp 16; Pulse Ox 99% ; me1 18:00 BP 148 / 81; Pulse 71; Resp 16; Pulse Ox 99% ; me1 19:00 BP 134 / 75; Pulse 65; Resp 16; Pulse Ox 94% ; me1 20:00 BP 125 / 71; Pulse 66; Resp 16; Pulse Ox 96% ; me1 21:00 BP 108 / 64; Pulse 68; Resp 17; Pulse Ox 97% ; me1 15:31 Body Mass Index 16.12 (48.08 kg, 172.72 cm) me1 15:31 Pain Scale: Adult me1 16:38 Pain Scale: Adult wi1 ED Course: 15:30 Patient arrived in ED. me1 15:30 Ambreen Springer MD is Attending Physician. gb1 15:30 Dianne Rowland, FRAN is Primary Nurse. me1 15:31 Jodie Goddard FNP-C [facility] kb 15:36 Triage completed. me1 15:38 Arm band placed on Patient placed in an exam room. me1 15:40 Patient has correct armband on for positive identification. Bed in low position. Call [place] light in reach. Side rails up X2. Provided Education on: POC. Verbalized understanding. . 15:45 No provider procedures requiring assistance completed. me1 15:59 CBC with Diff Sent. me1 15:59 CMP Sent. me1 15:59 Lipase Sent. me1 15:59 Initial lab(s) drawn, by wi, sent to lab. Inserted saline lock: 22 gauge in right [place] antecubital area, using aseptic technique. 18:08 CT Abd/Pelvis - PO and IV Contrast In Process Unspecified. EDMS 19:22 NGT: inserted 12 Fr. via left nare. verified placement of air over stomach, Patient [place] tolerated well. 19:51 Chest Single View XRAY In Process Unspecified. EDMS 19:51 Ministerio Mcdowell MD is Hospitalizing Provider. kb 20:24 First set of blood cultures drawn by wi. me1 20:27 Blood Culture Adult (2) Sent. me1 20:31 Second set of blood cultures drawn. me1 21:01 Patient admitted, IV remains in place. me1 Administered Medications: 16:06 Drug: Ondansetron IVP 4 mg IVP once; over 2 minutes Route: IVP; Site: right antecubital;me1 16:33 Follow up: Response: No adverse reaction; Nausea is decreased me1 16:06 Drug: Dicyclomine IM 20 mg IM once Route: IM; Site: right deltoid; me1 16:38 Follow up: Pain 8/10 Adult; Response: No adverse reaction; Pain is decreased me1 17:19 Drug: Ketorolac IVP 15 mg IVP once Route: IVP; Site: right antecubital; me1 18:03 Follow up: Response: No adverse reaction; Pain is decreased me 18:13 Drug: Ondansetron IVP 4 mg IVP once; over 2 minutes Route: IVP; Site: right antecubital;me1 18:14 Follow up: Response: No adverse reaction; Nausea is decreased me1 19:10 Drug: morphine IVP or IV 2 mg IVP once over 4 mins Route: IVP; Infused Over: 4 mins; me1 Site: right antecubital; 19:19 Follow up: Response: No adverse reaction; Pain is decreased me1 19:17 Not Given (Duplicate Order): piperacillin-tazobactam3.375 grams IVPB once over 60 mins; kb (mix in NS 100 mL) 20:31 Drug: Piperacillin-Tazobactam IVPB 3.375 grams IVPB once over 60 mins; (mix in NS 100 me1 mL) Route: IVPB; Infused Over: 60 mins; Site: right antecubital; 21:00 Follow up: Response: No adverse reaction; IV Status: Completed infusion; IV Intake: me1 100ml Medication: 15:40 VIS not applicable for this client. me1 Intake: 21:00 IV: 100ml; Total: 100ml. me1 Outcome: 19:51 Decision to Hospitalize by Provider. kb 21:01 Admitted to Med/surg accompanied by tech, via stretcher, room 216, with chart, Report me1 called to faxed, receipt confirmed with Barb 21:01 Condition: stable 21:01 Instructed on the need for admit, 21:09 Patient left the ED. me1 Signatures: Dispatcher [employer] Jodie Ramos, BEAM WARPER-C BEAM WARPER-Dianne Wong, RN RN me1 Ambreen Springer MD MD gb1 Corrections: (The following items were deleted from the chart) 20:27 20:08 Piperacillin-Tazobactam IVPB 3.375 grams IVPB in right antecubital over 60 mins me1 me1
--- NOTE | 2024-07-16 19:52 | EDPHYS ---
Physician Documentation [facility] Name: Chapis Bradley Age: 83 yrs Sex: Female : 1940 Arrival Date: 07/16/2024 Time: 15:28 Bed 20 Private MD: ED Physician Ambreen Springer HPI: 07/16 20:00 This 83 yrs old Female presents to ER via EMS with complaints of Abdominal Pain. kb Historical: - Allergies: 15:36 No Known Allergies; me1 - PMHx: 15:36 compression fx T12; Hypertensive disorder; chronic constipation; Depressive disorder; me1 left eye macular degeneration; - Immunization history:: Adult Immunizations up to date. - Infectious Disease History:: Denies. - Social history:: Smoking status: Patient denies any tobacco usage or history of. ROS: 19:57 Constitutional: As per HPI kb Exam: 19:57 Constitutional: This is a well developed, well nourished patient who is awake, alert, kb and in no acute distress. Head/Face: Normocephalic, atraumatic. ENT: Moist Mucous membranes Cardiovascular: Regular rate Respiratory: Respirations even and unlabored. No increased work of breathing. Talking in full sentences Skin: Warm, dry with normal turgor. Normal color. MS/ Extremity: Pulses equal, no cyanosis. Neurovascular intact. Full, normal range of motion. Neuro: Awake and alert, GCS 15, oriented to person, place, time, and situation. 19:57 Abdomen/GI: Inspection: abdomen appears normal, Bowel sounds: normal, Palpation: soft, in all quadrants, moderate abdominal tenderness, in the right upper quadrant and right lower quadrant, Vital Signs: 15:31 BP 149 / 86; Pulse 73; Resp 17; Temp 98.2; Pulse Ox 100% ; Weight 48.08 kg; Height 5 me1 ft. 8 in. ; Pain 8/10; 16:00 BP 135 / 76; Pulse 75; Resp 16; Pulse Ox 99% ; me1 16:38 Pain 8/10; me1 17:00 BP 147 / 96; Pulse 73; Resp 16; Pulse Ox 99% ; me1 18:00 BP 148 / 81; Pulse 71; Resp 16; Pulse Ox 99% ; me1 19:00 BP 134 / 75; Pulse 65; Resp 16; Pulse Ox 94% ; me1 20:00 BP 125 / 71; Pulse 66; Resp 16; Pulse Ox 96% ; me1 21:00 BP 108 / 64; Pulse 68; Resp 17; Pulse Ox 97% ; me1 15:31 Body Mass Index 16.12 (48.08 kg, 172.72 cm) me1 15:31 Pain Scale: Adult me1 16:38 Pain Scale: Adult me1 MDM: 15:30 Medical Screening Exam initiated gb1 20:00 Data reviewed: vital signs, nurses notes. kb 20:20 Differential diagnosis: non-specific abd pain, Constipation, obstruction. Consideration kb of Admission/Observation Patient was admitted/placed on observation. Escalation of care including admission/observation considered. Management of patient was discussed with the following: Conservation Officer: Dr. Francois accepts patient for consult. Once patient n.p.o., NG tube on low intermittent suction, Zosyn and cardiac clearance if needed.. Primary Care Provider: Dr. Mcdowell access patient for admission. States patient does not need cardiac clearance. Also does not want patient on antibiotics at this time. Request D5 half-normal saline at 75 mL/h, blood cultures, CBC and CMP in the morning, morphine and Zofran as needed.. Historians other than the Patient: EMS: [facility]. Counseling: I had a detailed discussion with the patient and/or guardian regarding the historical points, exam findings, and any diagnostic results supporting the discharge/admit diagnosis, lab results, radiology results, the need for further work-up and treatment in the hospital. 07/16 15:32 Order name: CBC with Diff; Complete Time: 16:40 kb 07/16 15:32 Order name: CMP; Complete Time: 16:28 kb 07/16 15:32 Order name: Lipase; Complete Time: 16:28 kb 07/16 15:32 Order name: Urinalysis w/ reflexes kb 07/16 19:17 Order name: Blood Culture Adult (2) 07/16 19:18 Order name: Urine Culture 07/16 15:32 Order name: CT Abd/Pelvis - PO and IV Contrast; Complete Time: 18:33 kb 07/16 19:18 Order name: Chest Single View XRAY; Complete Time: 20:41 [facility] [place] 07/16 15:32 Order name: IV Saline Lock; Complete Time: 15:59 kb 07/16 15:32 Order name: Labs collected and sent; Complete Time: 15:59 kb 07/16 18:53 Order name: NG Tube; Complete Time: 19:18 kb 07/16 18:53 Order name: NPO; Complete Time: 18:59 kb Administered Medications: 16:06 Drug: Ondansetron IVP 4 mg IVP once; over 2 minutes Route: IVP; Site: right antecubital;me1 16:33 Follow up: Response: No adverse reaction; Nausea is decreased me1 16:06 Drug: Dicyclomine IM 20 mg IM once Route: IM; Site: right deltoid; me1 16:38 Follow up: Pain 8/10 Adult; Response: No adverse reaction; Pain is decreased me1 17:19 Drug: Ketorolac IVP 15 mg IVP once Route: IVP; Site: right antecubital; me1 18:03 Follow up: Response: No adverse reaction; Pain is decreased me1 18:13 Drug: Ondansetron IVP 4 mg IVP once; over 2 minutes Route: IVP; Site: right antecubital;me1 18:14 Follow up: Response: No adverse reaction; Nausea is decreased me1 19:10 Drug: morphine IVP or IV 2 mg IVP once over 4 mins Route: IVP; Infused Over: 4 mins; me1 Site: right antecubital; 19:19 Follow up: Response: No adverse reaction; Pain is decreased me1 19:17 Not Given (Duplicate Order): piperacillin-tazobactam3.375 grams IVPB once over 60 mins; kb (mix in NS 100 mL) 20:31 Drug: Piperacillin-Tazobactam IVPB 3.375 grams IVPB once over 60 mins; (mix in NS 100 me1 mL) Route: IVPB; Infused Over: 60 mins; Site: right antecubital; 21:00 Follow up: Response: No adverse reaction; IV Status: Completed infusion; IV Intake: me1 100ml Disposition Summary: 07/16/24 19:51 Hospitalization Ordered Notes: Hospitalization Status: Inpatient Admission kb Provider: Ministerio Mcdowell Location: Telemetry/[facility] (Inpatient) kb Condition: Stable kb Problem: new kb Symptoms: are unchanged kb Bed/Room Type: Standard Room Assignment: 216(07/16/24 20:24) [facility] Diagnosis - Small Bowel Obstruction kb Forms: - Medication Reconciliation Form kb - SBAR form kb - Leadership Thank You Letter kb Addendum: 07/21/2024 11:35 I reviewed the patient's care provided by the Advanced Practice Provider and agree with effie keith the diagnosis and treatment plan. Signatures: Dispatcher [employer] EDAZ Jodie Goddard, DILIP ALBERTS-Dianne Wong RN RN me1 Ambreen Springer MD MD gb1 Jasmine Napoles [facility] Corrections: (The following items were deleted from the chart) 07/16 19:17 19:17 BLOOD CULTURE*+[id number].[email or web address].BRZ ordered. [facility] EDAZ 20:24 19:51 kb [facility]
[2024-07-16] MEDS ORDERED: NA CHLORIDE 0.9% 100 ML ONE (20:00)
[2024-07-16] MEDS ORDERED: PIPERACIL/TAZO 3.375 GM VIAL IV ONE (20:01)
--- NOTE | 2024-07-16 20:40 | RAD REPORT ---
EXAMINATION: ONE VIEW CHEST XR CLINICAL INDICATION: Female, 83 years old.,NG tube placement TECHNIQUE: Frontal chest projection is submitted. Examination is limited by patient positioning and t echnique. COMPARISON: 06/30/2024 FINDINGS: Enteric tube tip projects along the gastric body. The visualized aspects of the lungs show stable mil d reticular changes. No pneumothorax or sizable effusion. Cardiomediastinal contours are unchanged. Excreted contrast in the renal pelves, and multilevel sequelae of vertebral augmentation a gain seen. IMPRESSION: Enteric tube tip projects at the gastric body.
[2024-07-16] MEDS: MORPHINE 2 MG/ML SYR IV ONE (21:43)
[2024-07-16] MEDS: MORPHINE 4 MG/ML SYR IV PRN (21:55)
[2024-07-16] MEDS: D5 0.45 NS 1,000 ML IV SCH (21:56)
[2024-07-16] MEDS: ONDANSETRON 4 MG/2 ML VIAL IV PRN (21:57)
[2024-07-17 04:30] LABS: Absolute Basophils 0.2 K/uL (0-0.5); Absolute Neutrophil 25.1 K/uL (1.8-8.0); Basophils % 0.7 % (0-1.3); Eosinophils % 0.1 % (0-4.4); Hematocrit 42.2 % (36.0-45.0); Hemoglobin 14.1 g/dL (12.0-15.0); Lymphocytes % 3.8 % (15.3-44.8); MCH 30.7 pg (27.0-35.0); MCHC 33.4 g/dL (32.0-36.0); MCV 91.9 fL (80-100); MPV 7.8 fL (7.6-11.3); Monocytes % 3.6 % (3.3-12.3); Neutrophils % 91.8 % (41.7-73.7); Platelets 306 thou/uL (152-406); RBC Red Blood Cell Count 4.59 M/uL (3.86-4.86); Red Cell Distribution Width 14.6 % (12.1-15.2)
[2024-07-17 04:52] LABS: ALT/SGPT 19 U/L (13-56); AST/SGOT 25 U/L (15-37); Albumin 2.9 g/dL (3.4-5.0); Albumin/Globulin Ratio 0.9 (1.1-1.8); Alkaline Phosphatase 103 U/L (45-117); Anion Gap 12.2 mEq/L (5.0-15.0); BUN Blood Urea Nitrogen 27 mg/dL (7-18); Bicarbonate 26 mEq/L (21-32); Bilirubin Direct < 0.2 mg/dL (0-0.2); Bilirubin Indirect, Calculated 0.3 mg/dL (0.2-0.8); Bilirubin Total 0.5 mg/dL (0.2-1.0); Globulin 3.4 g/dL (2.3-3.5); Glomerular Filtration Rate 31 ml/min (=/>90); Glucose Level 233 mg/dL (74-106); Potassium 5.2 mEq/L (3.5-5.1); Protein, Total 6.3 g/dL (6.4-8.2); Sodium Level 137 mEq/L (136-145)
[2024-07-17 05:04] LABS: Band Neutrophils 10 % (0-1); Differential Total Cells Count 100; Lymphocytes 10 % (15-42); Monocytes 2 % (0-10); Segmented Neutrophils 78 % (40-80)
[2024-07-17 05:05] LABS: Blood Morphology Comment NOT SEEN (NOT SEEN); Platelet Estimate ADEQ
--- NOTE | 2024-07-17 08:34 | P.HP ---
Certification for Inpatient Patient admitted to: Inpatient With expected LOS: >2 Midnights Patient will require the following post-hospital care: None Practitioner: I am a practitioner with admitting privileges, knowledge of patient current condition, hospital course, and medical plan of care. Services: Services provided to patient in accordance with Admission requirements found in Title 42 Section 412.3 of the Code of Federal Regulations Patient History Date of Service: 07/17/24 Primary Care Provider: July Reason for admission: small bowel obstruction History of Present Illness: Patient of mine in [facility] assisted living. She had pain and abdominal distention yesterday per the home health nurse. She has chronic dementia. Has been poorly mobile after a spinal compression fracture. She was brought to the ER. Found to have a small bowel obstruction. Was admitted with an NG tube. Consult to Dr Francois. This morning she has an elevated wbc, low bp and elevated creatine Allergies No Known Allergies Allergy (Verified 07/16/24 22:52) Home Medications: Acetaminophen [Tylenol] 650 mg PO Q4HP PRN 06/23/24 Ascorbate Calcium [Vitamin C] 1 tab PO DAILY 06/23/24 Calcium Carbonate [Calcium] 500 mg PO BID PRN 06/23/24 Cetirizine HCl [Zyrtec] 10 mg PO DAILY PRN 06/23/24 Cholecalciferol (Vitamin D3) [Vitamin D 5,000 IU Cap*] 5,000 unit PO DAILY 06/23/24 Cyanocobalamin (Vitamin B-12) [Vitamin B-12] 1 tab PO DAILY 06/23/24 Ferrous Sulfate 325 mg PO DAILY 06/23/24 Hydralazine [Apresoline*] 25 mg PO TID PRN 06/23/24 Ibuprofen 400 mg PO Q4HP PRN 06/23/24 Lactobacillus Acidophilus 1 each PO DAILY 06/23/24 Lactulose 20 gm PO DAILY PRN 06/23/24 Losartan Potassium [Cozaar] 1 tab PO DAILY 06/23/24 Melatonin 6 mg PO BEDTIME PRN 06/23/24 Multivit-Min/FA/Lycopen/Lutein [Centrum Silver Tablet] 1 each PO DAILY 06/23/24 Polyethylene Glycol 3350 [Miralax] 1 packet PO DAILY 06/23/24 Potassium Chloride 20 meq PO DAILY 06/23/24 Sennosides [Senna] 8.6 mg PO BID 06/23/24 Gabapentin 300 mg PO BID #60 07/02/24 Lidocaine 4% Patch [Lidoderm 5% Patch*] 2 patch TOP DAILY pat 07/02/24 traMADol HCL [Ultram*] 50 mg PO Q4H PRN #60 tab 07/02/24 - Past Medical/Surgical History Has patient received pneumonia vaccine in the past: Yes Diabetic: No -: htn - Social History Smoking Status: Never smoker Alcohol use: No CD- Drugs: No Caffeine use: Yes Place of Residence: Home Review of Systems is unable to be obtained Physical Examination - Vital Signs Temperature: 97.1 F Blood Pressure: 100/51 Pulse: 76 Respirations: 16 Pulse Ox (%): 94 - Physical Exam General: Alert, Demented HEENT: Atraumatic, PERRLA, Mucous membr. moist/pink, EOMI, Sclerae nonicteric Neck: Supple, 2+ carotid pulse no bruit, No LAD, Without JVD or thyroid abnormality Respiratory: Clear to auscultation bilaterally, Normal air movement Cardiovascular: Regular rate/rhythm, Normal S1 S2 Gastrointestinal: Distended, Tenderness Musculoskeletal: No tenderness Integumentary: No rashes Neurological: Normal gait, Normal speech, Normal strength at 5/5 x4 extr, Normal tone, Normal affect Lymphatics: No axilla or inguinal lymphadenopathy - Studies Laboratory Data (last 24 hrs) 07/16/24 07/16/24 15:56 15:56 WBC 8.90 Hgb 12.2 Hct 36.8 Plt Count 263 Sodium 142 Potassium 4.7 BUN 20 H Creatinine 1.08 H Glucose 118 H Total Bilirubin 0.4 AST 34 ALT 20 Alkaline Phosphatase 110 Lipase 78 H Assessment and Plan - Problems (Diagnosis) (1) Small bowel obstruction Current Visit: Yes Status: Acute Plan: NG tube in place. Will add levoquin. She did not have a wbc last night. Now it is at 27K (2) Acute renal failure Current Visit: Yes Status: Acute Plan: will start fluid bolus for the kidney function and hypotenson Qualifiers: Acute renal failure type: unspecified Qualified Code(s): N17.9 - Acute kidney failure, unspecified (3) Severe sepsis Current Visit: Yes Status: Acute Plan: start fluids and antibiotics as above May need to move her to the ICU if her bp does not resolve. (4) Dementia Current Visit: Yes Status: Acute Qualifiers: Dementia type: unspecified type Dementia severity: severe Dementia behavioral or psychological symptom: without behavioral, psychotic, or mood disturbance or anxiety Qualified Code(s): F03.C0 - Unspecified dementia, severe, without behavioral disturbance, psychotic disturbance, mood disturbance, and anxiety Plan to discharge in: Greater than 2 days - Advance Directives Does patient have a Living Will: No Does patient have a Durable POA for Healthcare: No - Code Status/Comfort Care Code Status Assessed: No Code Status: Full Code Physician Review: Patient Assessed, Agree with Above Assessment and Plan Critical Care: No Time Spent Managing Pts Care (In Minutes): 40
[2024-07-17] MEDS: NA CHLORIDE 0.9% 500 ML IV ONE ×2 (08:39→09:00)
[2024-07-17] MEDS: Levofloxacin500mg IV 500 MG/100 ML BAG IV ONE (08:59)
[2024-07-17] MEDS: Ringers Lactate 1,000 ML IV ONE ×2 (10:25→13:55)
--- NOTE | 2024-07-17 10:29 | CON ---
Date of Consultation: 07/17/2024 Reason For Service: Small bowel obstruction. History Of Present Illness: This is a case of an 83-year-old patient from an assisted living [facility], found to have abdominal distention. Last night did not improve, so they brought her to the E R, found to have a small bowel obstruction. She cannot give much information she is still talking, b ut I was looking for the family member to try to get little more information from her. I just contac valdo family member at [phone] and I was able to have a better understanding of her medical history. Apparently, she only had a surgery, which is cholecystectomy many years ago. They have not been able to find out when this issue started since she is in assisted living. Apparently, everything started yesterday. I do not have information about any other medical issues or any previous colonoscopies a nd the patient cannot give it to me at this moment. Apparently, she has been having difficulty movin g since she has history of a spinal compression fracture. She also has some chronic dementia. Allergies: NONE. Medications: Apresoline, multivitamin, losartan. Social History: She does not smoke. She does not drink alcohol. Family History: Noncontributory. Review of Systems: Once again, history of dementia, so review of systems cannot be obtained. Physical Examination: Vital Signs: Temperature has been 97.2. There is documentation of 100/51 and 88/62, now 100/51 agai n. General: The patient is awake. Eyes: Pupils are equal and reactive. Chest: Clear. Abdomen: Softly distended, generalized abdominal pain. Rectal: Deferred. Breasts: Deferred. Pelvic: Deferred. Extremities: Good capillary refill. Laboratory Data: WBC count of 27.4 with hemoglobin of 14.1, and platelets of 306. Potassium is 5.2, BUN is 27, creatinine is 1.67, glucose 233. CAT scan of the abdomen and pelvis reviewed with small bowel obstruction. 2 areas of transition point in the right lower quadrant as seen in image 47 and 9 1. Assessment: An 83-year-old patient with bowel obstruction, leukocytosis, generalized abdominal pain. CAT scan showing multiple areas of transition points. I have few recommendations. I just discusse d the case with Dr. Mcdowell few minutes ago. I believe this patient should be in the ICU right now. Mercedez whitlock also gave the antibiotics, IV hydration, optimizer because we should proceed with exploratory lapar otomy, possible bowel resection, possible ostomy. In the beginning, I was discussing that with the sue lumalcolm and the patient, but finally we were able to get the phone number of the son and I talked to marisol lamas. I explained to him that even though she is 83 years old, her condition right now will require an exploration of the abdomen to find the culprit of this obstruction. We may have a different etiolog y of this bowel obstruction, but at this moment releasing that bowel obstruction and any bowel may be compromised to be resected in order to increase the chance of her having a better outcome. He is no t present at this moment. He would like to come here, so he is going to be here in the next few hour s and sign a consent. In the meantime, we are going to move the patient to the intensive care unit, give her optimization, IV hydration, antibiotics. NG tube in place. We expect this patient to keren nue in the ICU even after the surgery. The case was already booked in OR. JOI/ARLETTE Voice ID: [id number] Report ID: [id number]
[2024-07-17] MEDS ORDERED: ONDANSETRON 4 MG/2 ML VIAL ONE (10:56)
[2024-07-17] MEDS ORDERED: LIDOCAINE 1% MPF 2 ML AMPULE ONE (10:56)
[2024-07-17] MEDS ORDERED: FENTANYL CITR 100 MCG/2 ML ONE (10:57)
[2024-07-17] MEDS ORDERED: propofoL 200 MG/20 ML VIAL IV ONE (10:57)
[2024-07-17] MEDS ORDERED: ROCURONIUM 50 MG/5 ML VIAL IV ONE (11:00)
[2024-07-17] MEDS: BUPIVACAINE 0.5% PF 10 ML VIAL ONE (11:26)
[2024-07-17] MEDS: dexAMETHasone 10 MG/ML VIAL ONE (11:26)
[2024-07-17] MEDS: EPINEPHRINE 1 MG/ML VIAL ONE (11:26)
[2024-07-17] MEDS: BUPIVACAINE 0.25% PF 30 ML VIAL ONE (11:27)
[2024-07-17] MEDS: propofoL 1,000 MG/100 ML VIAL IV ONE (11:30)
[2024-07-17] MEDS: SUGAMMADEX SODIUM 200 MG/2 ML VIAL IV ONE (11:30)
--- NOTE | 2024-07-17 13:40 | P.BOP ---
Preoperative diagnosis: small bowel obstruction, peritonitis Postoperative diagnosis: same plus ischemic non viable small bowel , intrabd ominal adhesions Primary procedure: Emergent exploratory laparotomy, small bowel resection with anastomosis, Secondary procedure: extensive intrabdominal adhesions Estimated blood loss: <75cc Specimen: small bowel Findings: small bowel ischemia/ non viable trapped between adhesions Anesthesia: General Complications: None Drain(s): Nasogastric, Urinary catheter, ELIESER drain Transferred to: Recovery Room Condition: Good
[2024-07-17] MEDS: MORPHINE 2 MG/ML SYR IV PRN (16:41)
[2024-07-17] MEDS ORDERED: Mupirocin NASAL 2 APPL/1 GM TUBE NAS SCH (21:00)
[2024-07-17] MEDS: Mupirocin NASAL 2 APPL/1 GM TUBE NAS SCH (21:08)
--- NOTE | 2024-07-17 22:05 | RAD REPORT ---
EXAMINATION: ONE VIEW CHEST XR CLINICAL INDICATION: Female, 83 years old.,PICC inserted TECHNIQUE: Frontal chest projection is submitted. Examination is limited by patient positioning and t echnique. COMPARISON: 07/16/2024 FINDINGS: Left arm PICC has been placed, with catheter demonstrating a kink along its distal aspect, directed s omewhat medially. The tip terminates at the level of the superior vena cava. Patient rotation somewhat limits evaluation. Unchanged position of the enteric tube. The lungs are diffusely emphysema tous but grossly clear. No pneumothorax or sizable effusion. The heart is normal in size. Mediastinal contours are unremarkable. IMPRESSION: Mild kinking along the distal left arm PICC, which given the patient's rotation, could be positioned in the distal azygous vein.
[2024-07-17] MEDS: LORazepam 2 MG/ML VIAL IV ONE (22:37)
--- NOTE | 2024-07-18 00:29 | OP ---
Date of Procedure: 07/17/2024 Surgeon: Baldo Francois MD Preoperative Diagnosis: Small bowel obstruction, peritonitis. Postop Diagnoses: Small bowel obstruction, peritonitis, ischemic nonviable small bowel, intraabdominal adhesions. Procedure: Emergent exploratory laparotomy, small bowel resection with anastomosis, extensive lysis of adhesions. Estimated Blood Loss: Less than 75 cc. Specimen: Small bowel. Findings: Patient has ischemic bowel trapped nonviable between adhesions, is several feet of small b owel. We were trying to resect as much of that nonviable bowel, leave areas that we checked that loo ks viable and we verified that by looking at peristalsis. This may require second-look laparotomy if we see any clinical changes that we suspect there is more ischemia of the bowel. The etiology of th at is unknown, although we have multiple adhesions. The bowel was trapped in between that may be the cause of that although is not completely sure. Those adhesions apparently are from many years ago a nd has not caused any trouble before. It looks suspicious, but once again a second-look laparotomy a s part of the plan is not ruled out. Anesthesia: General plus local. Drains: Nasogastric tube, [place], ELIESER drains. Condition: Stable. Indications: This is a case of an 83-year-old patient, come few hours ago with abdominal pain, found to have peritonitis. I evaluated the patient, booked the case emergently, the patient received medi silvia optimization, even ICU movement and then we explained to the patient and the patient's son, the b enefits, alternatives, and risks of exploratory laparotomy, possible bowel resection, possible ostomy , which include, but not limited to infection, bleeding, damage to adjacent structures, anesthesia co mplication, [place], even . They also understands this may not relieve any symptoms. She might need more than one surgical intervention. She understood, signed a consent. The patient brought to the emergently to the operating room, placed in supine position. Anesthesia was done without complicatio n. Abdomen was prepped and draped in a usual sterile fashion. A time-out was called. A midline inc ision was done all the way down to fascia, and we went through it, we noticed the patient has ischemi c bowel. So we extended incision and we noticed that this bowel was trapped between several adhesion s that come from omentum into the low pelvis area. We did not feel any masses in that region so we r emoved those adhesions. We spent probably half the time just doing the adhesions to make sure we hav e no enterotomies or no bleeding. Then, we were able to release the bowel. We noticed some unfortun ately some of the bowel has been nonviable, so we let the bowel relax and then we identified some poi nts that we believe have no ischemia anymore, and in the meantime, we allowed the intestines then to be nice and warm and obstructed while we were doing irrigations and also doing exploration with carlen ding, transverse, descending colon with no masses palpated. NG tube is placed. The area of the pelv is and adhesions were removed. Then, we took a second look at the bowel and we noticed the areas at this moment looks viable and then we transected those areas proximal and distal with a JAD 80. We pr oceeded then to ligate the mesentery with the help of LigaSure. Area was irrigated. We looked again , we touched the bowel, looked at the areas of proximal and distal loops with peristalsis, so we used that as anastomosis site, so we did a [id number] anastomosis. We created 2 enterotomies, fired a JAD 60 in between, checked for any bleeding, and then closed the enterotomies with TA 60. At the end of the case, noticed the bowel to be viable. We put in stitch at proximal part of this anastomosis. We let that area to be there while we did warm irrigation of the area once agai n, obtained instrument, sponge count correct. Checked for hemostasis. I closed the mesentery with 3 -0 chromic. Then, we take a second look at the bowel again, looks viable, the proximal and distal pa rt, good color, good peristalsis. Put a ELIESER drain 1 of the sites. This will monitor the abdomen too and also near the area of the anastomosis with some omentum. At this moment looks viable. Once agai n, the etiology of that is unknown. If we see clinically she deteriorates then in that case she may need any right hemicolectomy since that we have reached the limit of the small bowel resection and th e area of the terminal ileum more than this will require at least an ascending colon resection with c ecectomy. At this moment, we do not have the need for that so we irrigated the area again with warm water and then after that put omentum back in place, made sure the bowel was not twisted and then pro ceeded to close the abdomen after sponge count and instrument counts correct with #2 nylon in a runni ng fashion. Subcutaneous tissue closed with 3-0 chromic and then the skin was approximated with stap les. Sponge count, instrument counts correct. Patient tolerated the procedure well. Patient sent t o recovery in stable condition. Patient will go to the ICU in critical but stable condition. JOI/MODL Voice ID: [id number] Report ID: [id number]
[2024-07-18] MEDS: Levofloxacin 250mg IV 250 MG/50 ML BAG IV SCH (10:27)
--- NOTE | 2024-07-18 13:06 | P.PN ---
Subjective Date of Service: 07/18/24 Primary Care Provider: July Chief Complaint: small bowel obstruction Subjective: No new changes Review of Systems is unable to be obtained Physical Examination - Vital Signs Temperature: 97.2 F Blood Pressure: 158/79 Pulse: 86 Respirations: 15 Pulse Ox (%): 99 - Physical Exam General: Alert, In no apparent distress HEENT: Atraumatic, PERRLA, EOMI Neck: Supple, JVD not distended Respiratory: Clear to auscultation bilaterally, Normal air movement Cardiovascular: Regular rate/rhythm, Normal S1 S2 Gastrointestinal: Normal bowel sounds, No tenderness Musculoskeletal: No tenderness Integumentary: No rashes Neurological: Normal speech, Normal tone, Normal affect Lymphatics: No axilla or inguinal lymphadenopathy Assessment And Plan - Current Problems (Diagnosis) (1) Small bowel obstruction Current Visit: Yes Status: Acute Plan: NG tube in place. Will add levoquin. She did not have a wbc last night. Now it is at 27K 11.8 s/p resection. consult for tpn (2) Acute renal failure Current Visit: Yes Status: Acute Plan: will start fluid bolus for the kidney function and hypotenson Qualifiers: Acute renal failure type: unspecified Qualified Code(s): N17.9 - Acute kidney failure, unspecified (3) Severe sepsis Current Visit: Yes Status: Acute Plan: start fluids and antibiotics as above May need to move her to the ICU if her bp does not resolve. (4) Dementia Current Visit: Yes Status: Acute Qualifiers: Dementia type: unspecified type Dementia severity: severe Dementia behavioral or psychological symptom: without behavioral, psychotic, or mood disturbance or anxiety Qualified Code(s): F03.C0 - Unspecified dementia, severe, without behavioral disturbance, psychotic disturbance, mood disturbance, and anxiety Discharge Plan: Home Plan to discharge in: Greater than 2 days Physician Review: Patient Assessed, Agree with Above Assessment and Plan Critical Care: Yes Time Spent Managing PTS Care (In Minutes): 25
[2024-07-18 13:32] LABS: Absolute Lymphocytes (CBC) 1.1 K/uL (0.7-4.9); Absolute Monocytes 1.1 K/uL (0.1-1.3); Absolute Neutrophil 15.1 K/uL (1.8-8.0); Basophils % 0.1 % (0-1.3); Hematocrit 29.7 % (36.0-45.0); Hemoglobin 9.5 g/dL (12.0-15.0); Lymphocytes % 6.6 % (15.3-44.8); MCH 29.9 pg (27.0-35.0); MCHC 31.9 g/dL (32.0-36.0); MCV 93.5 fL (80-100); MPV 7.8 fL (7.6-11.3); Monocytes % 6.4 % (3.3-12.3); Neutrophils % 86.9 % (41.7-73.7); Platelets 222 thou/uL (152-406); RBC Red Blood Cell Count 3.17 M/uL (3.86-4.86); Red Cell Distribution Width 14.5 % (12.1-15.2)
[2024-07-18] MEDS ORDERED: DEXTROSE 10%-WATER 500 ML IV SCH (14:00)
[2024-07-18] MEDS: AMINO ACIDS 4.25 %/DEXTROSE 5% 2,000 ML, Lipids 20% 250 ML with MULTIVITAMINS INJ 10 ML IV SCH (16:07)
[2024-07-18] MEDS: ENOXAPARIN 30 MG/0.3 ML SQ SCH (17:16)
--- NOTE | 2024-07-18 17:50 | PN ---
Date of Progress Note: 07/18/2024 Diagnosis: Small bowel obstruction, status post laparotomy and bowel resection. Subjective: Patient is doing well. No complaint. No chest pain. No shortness of breath. Objective: Chest: Clear. Abdomen: Soft and depressible. Bowel sounds negative. Extremities: Good capillary refill. Laboratory Data: Blood work reviewed. We will check chem-7. CBC is still pending. Plan: Continue bowel rest. NG tube. Incentive spirometry. Rehab for ambulation, if possible. JOI/ARLETTE Voice ID: [id number] Report ID: [id number]
[2024-07-19] MEDS: HYDROMORPHONE HCL 1 MG/ML INJ IV PRN (02:33)
--- NOTE | 2024-07-19 10:21 | P.PN ---
Subjective Date of Service: 07/19/24 Primary Care Provider: July Chief Complaint: small bowel obstruction Subjective: No new changes Review of Systems General: Weakness Physical Examination - Vital Signs Temperature: 97.1 F Blood Pressure: 130/57 Pulse: 69 Respirations: 13 Pulse Ox (%): 97 - Physical Exam General: Alert, In no apparent distress HEENT: Atraumatic, PERRLA, EOMI Neck: Supple, JVD not distended Respiratory: Clear to auscultation bilaterally, Normal air movement Cardiovascular: Regular rate/rhythm, Normal S1 S2 Gastrointestinal: Normal bowel sounds, No tenderness Musculoskeletal: No tenderness Integumentary: No rashes Neurological: Normal speech, Normal tone, Normal affect Lymphatics: No axilla or inguinal lymphadenopathy Assessment And Plan - Current Problems (Diagnosis) (1) Small bowel obstruction Current Visit: Yes Status: Acute Plan: NG tube in place. Will add levoquin. She did not have a wbc last night. Now it is at 27K 11.8 s/p resection. consult for tpn (2) Acute renal failure Current Visit: Yes Status: Acute Plan: will start fluid bolus for the kidney function and hypotenson Qualifiers: Acute renal failure type: unspecified Qualified Code(s): N17.9 - Acute kidney failure, unspecified (3) Severe sepsis Current Visit: Yes Status: Acute Plan: start fluids and antibiotics as above May need to move her to the ICU if her bp does not resolve. (4) Dementia Current Visit: Yes Status: Acute Qualifiers: Dementia type: unspecified type Dementia severity: severe Dementia behavioral or psychological symptom: without behavioral, psychotic, or mood disturbance or anxiety Qualified Code(s): F03.C0 - Unspecified dementia, severe, without behavioral disturbance, psychotic disturbance, mood disturbance, and anxiety (5) Excessive oral secretions Current Visit: Yes Status: Acute Plan: as per nursing. Will give one dose of muco myst. Via Nebulizer Discharge Plan: Home Plan to discharge in: 24 Hours - Code Status/Comfort Care Code Status Assessed: No Physician Review: Patient Assessed, Agree with Above Assessment and Plan Critical Care: Yes Time Spent Managing PTS Care (In Minutes): 20
[2024-07-19] MEDS: ACETYLCYST 20% 4 ML VIAL IH ONE (11:00)
[2024-07-19 12:47] LABS: Specific Gravity 1.017 (1.005-1.030); Sqamous Epithelial <5 /HPF (None Seen); Urine Bacteria None Seen /HPF (<20); Urine Bilirubin NEGATIVE (Negative); Urine Blood 1+ (Negative); Urine Clarity Clear (Clear); Urine Color Light-Yellow (Yellow); Urine Culture Reflex Order NOT NEEDED; Urine Glucose 2+ (Negative); Urine Ketones NEGATIVE (Negative); Urine Microscopic Reflex YN ORDER UMIC; Urine Nitrite NEGATIVE (Negative); Urine Protein NEGATIVE (Negative); Urine Urobilinogen Normal (Normal); Urine WBC <5 /HPF (<5)
--- NOTE | 2024-07-19 14:05 | P.PN ---
Subjective Date of Service: 07/19/24 Primary Care Provider: July Chief Complaint: small bowel obstruction Subjective: Improving Review of Systems General: Weakness, Malaise Cardiovascular: Unremarkable Physical Examination - Vital Signs Temperature: 97.1 F Blood Pressure: 151/56 Pulse: 64 Respirations: 16 Pulse Ox (%): 98 - Physical Exam General: Alert HEENT: PERRLA, EOMI Neck: Supple Respiratory: Clear to auscultation bilaterally Cardiovascular: No edema Gastrointestinal: Hypoactive, Soft and benign Musculoskeletal: No erythema, No tenderness, No warmth Integumentary: No rashes, No breakdown Assessment And Plan - Plan incentive spirometry Clamp NGT SCD May transfer to floor when ok by primary MD Parenteral nutrition Physician Review: Patient Assessed, Agree with Above Assessment and Plan
[2024-07-19] MEDS: HYDRALAZINE HCL 20 MG/ML VIAL IV PRN (14:31)
[2024-07-19] MEDS: AMINO ACIDS 4.25 %/DEXTROSE 5% 2,000 ML IV SCH (16:04)
[2024-07-20 05:32] VITALS: BMI 16.3
[2024-07-20 06:05] LABS: Absolute Eosinophils 0.1 K/uL (0-0.5); Absolute Monocytes 0.7 K/uL (0.1-1.3); Absolute Neutrophil 8.8 K/uL (1.8-8.0); Basophils % 0.1 % (0-1.3); Hemoglobin 9.3 g/dL (12.0-15.0); Lymphocytes % 9.5 % (15.3-44.8); MCHC 34.5 g/dL (32.0-36.0); MCV 89.9 fL (80-100); MPV 7.8 fL (7.6-11.3); Monocytes % 6.8 % (3.3-12.3); Neutrophils % 82.6 % (41.7-73.7); Platelets 202 thou/uL (152-406); RBC Red Blood Cell Count 3.01 M/uL (3.86-4.86); Red Cell Distribution Width 13.3 % (12.1-15.2)
[2024-07-20 06:18] LABS: Albumin 2.3 g/dL (3.4-5.0); Albumin/Globulin Ratio 0.8 (1.1-1.8); Anion Gap 9.5 mEq/L (5.0-15.0); Bilirubin Total 0.4 mg/dL (0.2-1.0); Globulin 2.9 g/dL (2.3-3.5); Potassium 3.5 mEq/L (3.5-5.1); Protein, Total 5.2 g/dL (6.4-8.2)
[2024-07-20] MEDS: ONDANSETRON 4 MG/2 ML VIAL IV PRN (12:27)
--- NOTE | 2024-07-20 12:28 | P.PN ---
Subjective Date of Service: 07/20/24 Primary Care Provider: July Chief Complaint: small bowel obstruction Subjective: Improving (awake, self suction) Review of Systems 10-point ROS is otherwise unremarkable General: Other (oral secretions) Physical Examination - Vital Signs Temperature: 97.3 F Blood Pressure: 157/77 Pulse: 76 Respirations: 12 Pulse Ox (%): 97 - Physical Exam General: Alert, In no apparent distress HEENT: Atraumatic, PERRLA, EOMI Neck: Supple, JVD not distended Respiratory: Clear to auscultation bilaterally, Normal air movement Cardiovascular: Regular rate/rhythm, Normal S1 S2 Gastrointestinal: Normal bowel sounds, No tenderness Musculoskeletal: No tenderness Integumentary: No rashes Neurological: Normal speech, Normal tone, Normal affect Lymphatics: No axilla or inguinal lymphadenopathy Assessment And Plan - Current Problems (Diagnosis) (1) Small bowel obstruction Current Visit: Yes Status: Acute Plan: NG tube in place. Will add levoquin. She did not have a wbc last night. Now it is at 27K 11.8 s/p resection. consult for tpn (2) Acute renal failure Current Visit: Yes Status: Resolved Plan: will start fluid bolus for the kidney function and hypotenson Qualifiers: Acute renal failure type: unspecified Qualified Code(s): N17.9 - Acute kidney failure, unspecified (3) Severe sepsis Current Visit: Yes Status: Resolved Plan: start fluids and antibiotics as above May need to move her to the ICU if her bp does not resolve. (4) Dementia Current Visit: Yes Status: Acute Qualifiers: Dementia type: unspecified type Dementia severity: severe Dementia behavioral or psychological symptom: without behavioral, psychotic, or mood disturbance or anxiety Qualified Code(s): F03.C0 - Unspecified dementia, severe, without behavioral disturbance, psychotic disturbance, mood disturbance, and anxiety (5) Excessive oral secretions Current Visit: Yes Status: Acute Plan: as per nursing. Will give one dose of muco myst. Via Nebulizer 11.10 will need to remove the ng tube. Has only had 10cc of drainage. Will need to wait for Dr. Francois decision. Discharge Plan: Home Plan to discharge in: Greater than 2 days - Code Status/Comfort Care Code Status Assessed: No Physician Review: Patient Assessed, Agree with Above Assessment and Plan Critical Care: No Time Spent Managing PTS Care (In Minutes): 20
--- NOTE | 2024-07-20 23:26 | PN ---
Date of Progress Note: 07/20/2024 Diagnoses: Status post bowel resection, anastomosis, laparotomy, lysis of adhesions. Subjective: The patient is doing better. No shortness of breath. No chest pain. Although she has history of dementia, she still responds to commands. Objective: Chest: Clear. Abdomen: Soft and depressible. Extremities: Good capillary refill. Laboratory Data: Blood work shows WBC count of 10.7, coming down from 27; hemoglobin of 9.3. Creati nine is 0.52. Plan: Ambulation, incentive spirometry. We are going to discontinue the NG tube tomorrow. May have some ice chips. JOI/MODL Voice ID: [id number] Report ID: [id number]
[2024-07-21 07:23] LABS: Absolute Eosinophils 0.2 K/uL (0-0.5); Absolute Lymphocytes (CBC) 1.2 K/uL (0.7-4.9); Absolute Monocytes 0.8 K/uL (0.1-1.3); Absolute Neutrophil 8.4 K/uL (1.8-8.0); Basophils % 0.2 % (0-1.3); Eosinophils % 2.3 % (0-4.4); Hemoglobin 9.8 g/dL (12.0-15.0); Lymphocytes % 11.1 % (15.3-44.8); MCH 32.2 pg (27.0-35.0); MCHC 36.2 g/dL (32.0-36.0); MCV 88.9 fL (80-100); MPV 7.7 fL (7.6-11.3); Monocytes % 7.1 % (3.3-12.3); Neutrophils % 79.3 % (41.7-73.7); Platelets 207 thou/uL (152-406); RBC Red Blood Cell Count 3.03 M/uL (3.86-4.86); Red Cell Distribution Width 13.4 % (12.1-15.2)
[2024-07-21 07:33] LABS: Albumin 2.3 g/dL (3.4-5.0); Albumin/Globulin Ratio 0.8 (1.1-1.8); Bilirubin Total 0.5 mg/dL (0.2-1.0); Protein, Total 5.3 g/dL (6.4-8.2)
--- NOTE | 2024-07-21 10:54 | P.PN ---
Subjective Date of Service: 07/21/24 Primary Care Provider: July Chief Complaint: small bowel obstruction Subjective: No new changes Review of Systems 10-point ROS is otherwise unremarkable Physical Examination - Vital Signs Temperature: 98.1 F Blood Pressure: 164/68 Pulse: 75 Respirations: 12 Pulse Ox (%): 97 - Physical Exam General: Alert, In no apparent distress HEENT: Atraumatic, PERRLA, EOMI Neck: Supple, JVD not distended Respiratory: Clear to auscultation bilaterally, Normal air movement Cardiovascular: Regular rate/rhythm, Normal S1 S2 Gastrointestinal: Normal bowel sounds, No tenderness Musculoskeletal: No tenderness Integumentary: No rashes Neurological: Normal speech, Normal tone, Normal affect Lymphatics: No axilla or inguinal lymphadenopathy Assessment And Plan - Current Problems (Diagnosis) (1) Small bowel obstruction Current Visit: Yes Status: Acute Plan: NG tube in place. Will add levoquin. She did not have a wbc last night. Now it is at 27K 11.11 possible removal of the NG tube today (2) Acute renal failure Current Visit: Yes Status: Resolved Plan: will start fluid bolus for the kidney function and hypotenson Qualifiers: Acute renal failure type: unspecified Qualified Code(s): N17.9 - Acute kidney failure, unspecified (3) Severe sepsis Current Visit: Yes Status: Resolved Plan: start fluids and antibiotics as above May need to move her to the ICU if her bp does not resolve. (4) Dementia Current Visit: Yes Status: Acute Qualifiers: Dementia type: unspecified type Dementia severity: severe Dementia behavioral or psychological symptom: without behavioral, psychotic, or mood disturbance or anxiety Qualified Code(s): F03.C0 - Unspecified dementia, severe, without behavioral disturbance, psychotic disturbance, mood disturbance, and anxiety (5) Excessive oral secretions Current Visit: Yes Status: Acute Plan: as per nursing. Will give one dose of muco myst. Via Nebulizer 11.10 will need to remove the ng tube. Has only had 10cc of drainage. Will need to wait for Dr. Francois decision. Discharge Plan: Home Plan to discharge in: 24 Hours - Code Status/Comfort Care Code Status Assessed: No Physician Review: Patient Assessed, Agree with Above Assessment and Plan Critical Care: No Time Spent Managing PTS Care (In Minutes): 20
[2024-07-21] MEDS: Levofloxacin500mg IV 500 MG/100 ML BAG IV SCH (11:40)
[2024-07-21] MEDS: ENOXAPARIN 40 MG/0.4 ML SQ SCH (17:10)
[2024-07-21] MEDS: AMINO ACIDS 4.25 %/DEXTROSE 5% 2,000 ML, Lipids 20% 250 ML with MULTIVITAMINS INJ 10 ML IV SCH (17:11)
[2024-07-22 06:05] LABS: Absolute Eosinophils 0.2 K/uL (0-0.5); Absolute Lymphocytes (CBC) 1.3 K/uL (0.7-4.9); Absolute Monocytes 1.3 K/uL (0.1-1.3); Absolute Neutrophil 11.6 K/uL (1.8-8.0); Basophils % 0.1 % (0-1.3); Eosinophils % 1.1 % (0-4.4); Hematocrit 26.8 % (36.0-45.0); Hemoglobin 9.6 g/dL (12.0-15.0); MCH 30.8 pg (27.0-35.0); MCHC 35.9 g/dL (32.0-36.0); MCV 85.8 fL (80-100); MPV 7.2 fL (7.6-11.3); Neutrophils % 80.8 % (41.7-73.7); Platelets 233 thou/uL (152-406); RBC Red Blood Cell Count 3.12 M/uL (3.86-4.86); Red Cell Distribution Width 13.1 % (12.1-15.2)
[2024-07-22 06:20] LABS: Albumin 2.3 g/dL (3.4-5.0); Albumin/Globulin Ratio 0.7 (1.1-1.8); Anion Gap 10.6 mEq/L (5.0-15.0); Bilirubin Total 0.5 mg/dL (0.2-1.0); Globulin 3.1 g/dL (2.3-3.5); Protein, Total 5.4 g/dL (6.4-8.2)
[2024-07-22 06:28] LABS: Potassium 2.6 mEq/L (3.5-5.1)
--- NOTE | 2024-07-22 08:59 | P.PN ---
Subjective Date of Service: 07/22/24 Primary Care Provider: July Chief Complaint: small bowel obstruction Subjective: New changes (nursing reporting patient was hypoxic with decreased mentation.) Review of Systems is unable to be obtained Physical Examination - Vital Signs Temperature: 97.6 F Blood Pressure: 128/62 Pulse: 109 Respirations: 17 Pulse Ox (%): 94 - Physical Exam General: Mild distress, Other (decreased responsiveness) HEENT: Atraumatic, PERRLA, EOMI Neck: Supple, JVD not distended Respiratory: Rhonchi/gurgles Cardiovascular: Regular rate/rhythm, Normal S1 S2 Gastrointestinal: Normal bowel sounds, No tenderness Musculoskeletal: No tenderness Integumentary: No rashes Neurological: Normal speech, Normal tone, Normal affect Lymphatics: No axilla or inguinal lymphadenopathy Assessment And Plan - Current Problems (Diagnosis) (1) Small bowel obstruction Current Visit: Yes Status: Acute Plan: NG tube in place. Will add levoquin. She did not have a wbc last night. Now it is at 27K 11.11 possible removal of the NG tube today (2) Acute renal failure Current Visit: Yes Status: Resolved Plan: will start fluid bolus for the kidney function and hypotenson Qualifiers: Acute renal failure type: unspecified Qualified Code(s): N17.9 - Acute kidney failure, unspecified (3) Severe sepsis Current Visit: Yes Status: Resolved Plan: start fluids and antibiotics as above May need to move her to the ICU if her bp does not resolve. (4) Dementia Current Visit: Yes Status: Acute Qualifiers: Dementia type: unspecified type Dementia severity: severe Dementia behavioral or psychological symptom: without behavioral, psychotic, or mood disturbance or anxiety Qualified Code(s): F03.C0 - Unspecified dementia, severe, without behavioral disturbance, psychotic disturbance, mood disturbance, and anxiety (5) Excessive oral secretions Current Visit: Yes Status: Acute Plan: as per nursing. Will give one dose of muco myst. Via Nebulizer 11.10 will need to remove the ng tube. Has only had 10cc of drainage. Will need to wait for Dr. Alessandro hernandez. (6) Aspiration into airway Current Visit: Yes Status: Acute Plan: possible aspiration. Will start her on oxygen, zosyn and breathing treatment. consult to Dr. Castillo. Will check an ABG on the patient. vasotherm oxygen for high flow Qualifiers: Encounter type: initial encounter Qualified Code(s): T17.908A - Unspecified foreign body in respiratory tract, part unspecified causing other injury, initial encounter Discharge Plan: LTAC Plan to discharge in: Greater than 2 days - Code Status/Comfort Care Code Status Assessed: No Physician Review: Patient Assessed, Agree with Above Assessment and Plan Critical Care: No Time Spent Managing PTS Care (In Minutes): 30
[2024-07-22] MEDS: KCL 20 MEQ/100 mL IVPB 20 MEQ/100 ML BAG IV SCH (09:00)
[2024-07-22] MEDS ORDERED: Levofloxacin 750mg IV 750 MG/150 ML BAG IV SCH (09:00)
--- NOTE | 2024-07-22 09:04 | RAD REPORT ---
EXAM: Chest Single View HISTORY: sob COMPARISON: 07/17/2024 FINDINGS: LUNGS/PLEURA: Increased retrocardiac airspace disease. MEDIASTINUM: The mediastinal silhouette is within normal limits. CARDIAC: The cardiac silhouette is within normal limits. UPPER ABDOMEN: No significant abnormality. BONES: No acute fracture. Kyphoplasty changes present in the lower spine. LINES/TUBES/OTHER: The left subclavian approach PICC now terminates in the region of the left brachio cephalic vein and has retracted some. IMPRESSION: 1. Mild increased opacities at the left lung base could reflect increased atelectasis and/or pneumoni a. Alternatively, it could be due to underpenetration. A standard PA and lateral could likely better evaluate if the patient could tolerate. 2. Left subclavian approach PICC tip has retracted into the expected location of the left brachioceph alic vein.
[2024-07-22] MEDS: PIPER TAZO 3.375 GM in NA CHLORIDE 0.9% 100 ML IV SCH (10:00)
[2024-07-22] MEDS: LEVALBUTEROL 1.25 MG/3 ML NEB NEB SCH (12:10)
--- NOTE | 2024-07-22 12:41 | P.PN ---
Subjective Date of Service: 07/21/24 Primary Care Provider: July Chief Complaint: small bowel obstruction Subjective: Improving Review of Systems Respiratory: Unremarkable Gastrointestinal: As per HPI Integumentary: Unremarkable Physical Examination - Vital Signs Temperature: 97.9 F Blood Pressure: 139/71 Pulse: 85 Respirations: 20 Pulse Ox (%): 88 - Physical Exam General: Alert, In no apparent distress, Cooperative, Other (hx of dementia) HEENT: PERRLA Neck: Supple Respiratory: Normal air movement Gastrointestinal: Soft and benign Integumentary: No erythema, No warmth, No cyanosis Neurological: Normal speech Assessment And Plan - Plan incentive spirometry d/C NGT SCD clear liquid diet Parenteral nutrition until acceptable calories intake obtained Physician Review: Patient Assessed, Agree with Above Assessment and Plan
--- NOTE | 2024-07-22 12:42 | P.CNS ---
Date of Consult: 07/22/24 Reason for Consult: Respiratory failure Primary Care Provider: July Chief Complaint: Respiratory failure History of Present Illness: Patient is 83 years of age had is small bowel obstruction underwent lysis of adhesions on July 17 then became very hypoxic was transferred to the ICU currently on a BiPAP 100% FiO2 oxygenation satisfactory patient is nonverbal patient did undergo small bowel resection with anastomosis and lysis of adhesions Allergies No Known Allergies Allergy (Verified 07/16/24 22:52) Home Medications: Acetaminophen [Tylenol] 650 mg PO Q4HP PRN 06/23/24 Ascorbate Calcium [Vitamin C] 1 tab PO DAILY 06/23/24 Calcium Carbonate [Calcium] 500 mg PO BID PRN 06/23/24 Cetirizine HCl [Zyrtec] 10 mg PO DAILY PRN 06/23/24 Cholecalciferol (Vitamin D3) [Vitamin D 5,000 IU Cap*] 5,000 unit PO DAILY 06/23/24 Cyanocobalamin (Vitamin B-12) [Vitamin B-12] 1 tab PO DAILY 06/23/24 Ferrous Sulfate 325 mg PO DAILY 06/23/24 Hydralazine [Apresoline*] 25 mg PO TID PRN 06/23/24 Ibuprofen 400 mg PO Q4HP PRN 06/23/24 Lactobacillus Acidophilus 1 each PO DAILY 06/23/24 Lactulose 20 gm PO DAILY PRN 06/23/24 Losartan Potassium [Cozaar] 1 tab PO DAILY 06/23/24 Melatonin 6 mg PO BEDTIME PRN 06/23/24 Multivit-Min/FA/Lycopen/Lutein [Centrum Silver Tablet] 1 each PO DAILY 06/23/24 Polyethylene Glycol 3350 [Miralax] 1 packet PO DAILY 06/23/24 Potassium Chloride 20 meq PO DAILY 06/23/24 Sennosides [Senna] 8.6 mg PO BID 06/23/24 Gabapentin 300 mg PO BID #60 07/02/24 Lidocaine 4% Patch [Lidoderm 5% Patch*] 2 patch TOP DAILY pat 07/02/24 traMADol HCL [Ultram*] 50 mg PO Q4H PRN #60 tab 07/02/24 - Past Medical/Surgical History Diabetic: No -: htn -: Dementia - Social History Alcohol use: No CD- Drugs: No Caffeine use: Yes Place of Residence: Home Review of Systems is unable to be obtained Physical Examination Temp Pulse Resp BP Pulse Ox 97.9 F 85 20 139/71 88 L 07/22/24 12:41 07/22/24 12:41 07/22/24 12:41 07/22/24 12:41 07/22/24 12:41 General: Unresponsive Respiratory: Clear to auscultation bilaterally, Diminished Cardiovascular: No edema, Normal pulses Gastrointestinal: Hypoactive, Soft and benign, Non-distended - Problems (1) Respiratory failure Current Visit: Yes Status: Acute Plan: 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
[2024-07-22 13:22] LABS: Arterial Blood Carboxyhemoglob 1.6 % (0-1.5); Blood Gas Oxyhemoglobin 87.1 % (94-97); Blood Gas THB 10.2 g/dl (12-18); Blood O2 Saturation 89.1 % (92-98.5)
[2024-07-22] MEDS: ENOXAPARIN 60 MG/0.6 ML SQ SCH (14:01)
[2024-07-22 15:51] LABS: Arterial Blood Carboxyhemoglob 1.3 % (0-1.5); Blood Gas Oxyhemoglobin 89.2 % (94-97)
[2024-07-22 15:52] LABS: Blood Gas THB 10.3 g/dl (12-18)
--- NOTE | 2024-07-22 17:41 | PN ---
Date of Progress Note: 07/22/2024 Subjective: Ms. Bradley is an 83-year-old patient who came with small bowel obstruction, having nonvi able intestines, taken for emergent surgery with laparotomy, bowel resection. The patient spent few days in the ICU. Came down to the floor. NG tube is out. Abdomen intact, in no pain. Starting to tolerate some liquid. Apparently, she is in a workup right now by the primary doctor due to change i n mental status and there is a possibility of taking her back to the ICU again. Objective: HEENT: Pupils are equal and reactive. Neck: Supple. Abdomen: Soft and depressible. Intact surgical site. Bowel sounds positive. Extremities: Good capillary refill. No calf tenderness. Plan: From the surgical standpoint, continue medical service. Ambulation, if possible. Incentive s pirometry. Please continue the antibiotics in that lady. ELIESER drain is minimal, clear. Continue medi silvia service and mental status workup change per Dr. Mcdowell. HM/MODL Voice ID: [id number] Report ID: [id number]
--- NOTE | 2024-07-23 07:51 | RAD REPORT ---
Procedure: Chest Single View HISTORY: Respiratory failure COMPARISON: July 22, 2024 FINDINGS: Mild right basilar lung opacities have developed Additional mild interstitial opacities appear chronic No significant pleural effusion noted. The heart is mildly enlarged. PICC line unchanged. IMPRESSION: Mild right basilar opacities may represent pneumonia or pneumonitis.
[2024-07-23 08:23] LABS: Absolute Eosinophils 0.1 K/uL (0-0.5); Absolute Lymphocytes (CBC) 1.2 K/uL (0.7-4.9); Absolute Monocytes 1.1 K/uL (0.1-1.3); Absolute Neutrophil 15.8 K/uL (1.8-8.0); Basophils % 0.2 % (0-1.3); Eosinophils % 0.7 % (0-4.4); Hematocrit 27.3 % (36.0-45.0); Hemoglobin 9.9 g/dL (12.0-15.0); Lymphocytes % 6.4 % (15.3-44.8); MCH 31.2 pg (27.0-35.0); MCHC 36.4 g/dL (32.0-36.0); MCV 85.7 fL (80-100); MPV 7.3 fL (7.6-11.3); Monocytes % 5.9 % (3.3-12.3); Neutrophils % 86.8 % (41.7-73.7); Platelets 212 thou/uL (152-406); RBC Red Blood Cell Count 3.19 M/uL (3.86-4.86)
[2024-07-23 08:44] LABS: Albumin 2.2 g/dL (3.4-5.0); Albumin/Globulin Ratio 0.7 (1.1-1.8); Anion Gap 9.9 mEq/L (5.0-15.0); Bilirubin Total 0.8 mg/dL (0.2-1.0); Globulin 3.1 g/dL (2.3-3.5); Potassium 2.9 mEq/L (3.5-5.1); Protein, Total 5.3 g/dL (6.4-8.2)
--- NOTE | 2024-07-23 09:05 | P.PN ---
Subjective Date of Service: 07/23/24 Primary Care Provider: July Chief Complaint: Respiratory failure Subjective: No new changes Review of Systems is unable to be obtained Physical Examination - Vital Signs Temperature: 97.2 F Blood Pressure: 147/83 Pulse: 67 Respirations: 15 Pulse Ox (%): 100 - Physical Exam General: Alert, In no apparent distress HEENT: Atraumatic, PERRLA, EOMI Neck: Supple, JVD not distended Respiratory: Clear to auscultation bilaterally, Normal air movement Cardiovascular: Regular rate/rhythm, Normal S1 S2 Gastrointestinal: Normal bowel sounds, No tenderness Musculoskeletal: No tenderness Integumentary: No rashes Neurological: Normal speech, Normal tone, Normal affect Lymphatics: No axilla or inguinal lymphadenopathy Assessment And Plan - Current Problems (Diagnosis) (1) Hypoxia Current Visit: Yes Status: Acute Plan: possible aspiration vs. DVT,. Will recheck the xray. CT angiogram ordered by Dr. Castillo (2) Small bowel obstruction Current Visit: Yes Status: Acute Plan: NG tube in place. Will add levoquin. She did not have a wbc last night. Now it is at 27K 11.11 possible removal of the NG tube today (3) Acute renal failure Current Visit: Yes Status: Resolved Plan: will start fluid bolus for the kidney function and hypotenson Qualifiers: Acute renal failure type: unspecified Qualified Code(s): N17.9 - Acute kidney failure, unspecified (4) Dementia Current Visit: Yes Status: Acute Qualifiers: Dementia type: unspecified type Dementia severity: severe Dementia behavioral or psychological symptom: without behavioral, psychotic, or mood disturbance or anxiety Qualified Code(s): F03.C0 - Unspecified dementia, severe, without behavioral disturbance, psychotic disturbance, mood disturbance, and anxiety Discharge Plan: LTAC Plan to discharge in: Greater than 2 days - Code Status/Comfort Care Code Status Assessed: No Physician Review: Patient Assessed, Agree with Above Assessment and Plan Critical Care: Yes Time Spent Managing PTS Care (In Minutes): 20
[2024-07-23 09:34] LABS: Blood Morphology Comment NOT SEEN (NOT SEEN); Platelet Estimate ADEQ; White Blood Cell Scan OK (OK)
--- NOTE | 2024-07-23 10:17 | ECHO ---
HEIGHT: 5 ft 8 in WEIGHT: 107 lb 11.2 oz DATE OF STUDY: 07/22/[address]: Eitan Glasgow MD 2-DIMENSIONAL: YES M.MODE: YES DOPPLER: YES COLOR FLOW: YES TDS: PORTABLE: YES DEFINITY: BUBBLE STUDY: DIAGNOSIS: RESPIRATORY FAILURE CARDIAC HISTORY: CATHERIZATION: NO SURGERY: NO PROSTHETIC VALVE: NO PACEMAKER: NO MEASUREMENTS (cm) DIASTOLIC (NORMALS) SYSTOLIC (NORMALS) IVSd 0.9 (0.6-1.2) LA Diam 1.8 (1.9-4.0) LVEF 60-65% LVIDd 3.3 (3.5-5.7) LVIDs 2.1 (2.0-3.5) %FS 37% LVPWd 0.9 (0.6-1.2) Ao Diam 2.7 (2.0-3.7) 2 DIMENSIONAL ASSESSMENT: RIGHT ATRIUM: NORMAL LEFT ATRIUM: NORMAL RIGHT VENTRICLE: NORMAL LEFT VENTRICLE: NORMAL TRICUSPID VALVE: MILD TRICUSPID REGURGITATION MITRAL VALVE: MILD MITRAL REGURGITATION PULMONIC VALVE: MILD PULMONIC INSUFFICIENCY AORTIC VALVE: NORMAL PERICARDIAL EFFUSION: NONE AORTIC ROOT: NORMAL LEFT VENTRICULAR WALL MOTION: NORMAL DOPPLER/COLOR FLOW: SEE BELOW COMMENTS: 1. NORMAL LEFT VENTRICULAR EJECTION FRACTION 60-65% WITH NORMAL WALL MOTION 2. GRADE I DIASTOLIC DYSFUNCTION 3. MILD MITRAL REGURGITATION 4. MILD TRICUSPID REGURGITATION 5. NORMAL RIGHT VENTRICULAR SYSTOLIC PRESSURE GREATER THAN 30 mmHg TECHNOLOGIST: AMANDA RAYMOND
--- NOTE | 2024-07-23 11:06 | RAD REPORT ---
Procedure: Chest Pa And Lat (2 Views) HISTORY: Chest pain COMPARISON: July 23, 2024 FINDINGS: Mild bibasilar lung opacities. No significant pleural effusion noted. The heart is mildly enlarged. IMPRESSION: Mild bibasilar lung opacities probably pneumonia
--- NOTE | 2024-07-23 11:22 | RAD REPORT ---
EXAMINATION: CTA CHEST PE CLINICAL INDICATION: Chest pain TECHNIQUE: 100 cc 370 Isovue administered intravenously. This examination was performed according to an angiographic protocol with 3D post-processing. This involves 3D reconstructions, MIPs, volume rendered images and/or shaded surface rendering. One or more of the following dose reduction techniqu es were used: Automated exposure control, adjustment of the mA and/or kV according to patient size, and/or iterative reconstruction. Unless otherwise specified, incidental findings do not require dedic ated imaging follow-up. [id number]. COMPARISON: No prior exam. FINDINGS: A pulmonary embolus is not seen. An aortic aneurysm not noted. No pleural effusion. No pericardial effusion. Mild to moderate left lower lobe and mild right lower lobe opacities. Mild groundglass opacities righ t upper lobe. Subacute mild compression fracture T12 vertebral body. IMPRESSION: No evidence of a pulmonary embolism Bilateral pulmonary opacities probably pneumonia
--- NOTE | 2024-07-23 12:35 | P.PN ---
Subjective Date of Service: 07/23/24 Primary Care Provider: July Chief Complaint: Respiratory failure Change in patient's condition still on BiPAP Review of Systems is unable to be obtained Physical Examination - Vital Signs Temperature: 97.2 F Blood Pressure: 123/58 Pulse: 70 Respirations: 15 Pulse Ox (%): 100 - Physical Exam General: Unresponsive Respiratory: Clear to auscultation bilaterally Cardiovascular: No edema, Regular rate/rhythm Assessment And Plan - Current Problems (Diagnosis) (1) Respiratory failure Current Visit: Yes Status: Acute Plan: Patient is admitted with respiratory failure has right lower lobe pneumonia on CT scan patient is hyponatremic hypokalemic will need potassium replacement currently on TPN white count is elevated. Titrate O2 to a sat of 90% no evidence of thromboembolism normal ejection fraction no evidence of cor pulmonale on echocardiogram replace potassium Qualifiers: Chronicity: unspecified Physician Review: Patient Assessed, Agree with Above Assessment and Plan
[2024-07-23] MEDS ORDERED: POTASSIUM CL 40 MEQ in NA CHLORIDE 0.9% 500 ML IV SCH (13:00)
[2024-07-23] MEDS: LEVALBUTEROL 1.25 MG/3 ML NEB NEB SCH (13:00)
[2024-07-23] MEDS: NS KCL 20 MEQ IV SCH (13:00)
[2024-07-23] MEDS: KCL 20 MEQ/100 mL IVPB 100 ML IV SCH (15:29)
--- NOTE | 2024-07-24 07:04 | RAD REPORT ---
Procedure: Chest Single View HISTORY: Respiratory failure COMPARISON: July 23, 2024 FINDINGS: Mild worsening in the right lung opacities. No significant change in the left lung opacities The lungs are hyperaerated. No significant pleural effusion noted. The heart is enlarged. PICC line with its tip in the SVC pointing laterally IMPRESSION: Mild worsening in the right and no significant change in the left pulmonary opacities.
[2024-07-24 07:11] LABS: Absolute Eosinophils 0.2 K/uL (0-0.5); Absolute Lymphocytes (CBC) 0.7 K/uL (0.7-4.9); Absolute Monocytes 0.7 K/uL (0.1-1.3); Absolute Neutrophil 10.6 K/uL (1.8-8.0); Basophils % 0.2 % (0-1.3); Eosinophils % 1.5 % (0-4.4); Hematocrit 23.4 % (36.0-45.0); Hemoglobin 8.2 g/dL (12.0-15.0); Lymphocytes % 5.5 % (15.3-44.8); MCH 30.5 pg (27.0-35.0); MCV 87.2 fL (80-100); MPV 7.6 fL (7.6-11.3); Monocytes % 5.4 % (3.3-12.3); Neutrophils % 87.4 % (41.7-73.7); Platelets 222 thou/uL (152-406); RBC Red Blood Cell Count 2.69 M/uL (3.86-4.86); Red Cell Distribution Width 13.4 % (12.1-15.2)
[2024-07-24 07:13] LABS: Albumin 1.8 g/dL (3.4-5.0); Albumin/Globulin Ratio 0.6 (1.1-1.8); Anion Gap 9.2 mEq/L (5.0-15.0); Bilirubin Total 0.6 mg/dL (0.2-1.0); Globulin 2.9 g/dL (2.3-3.5); Potassium 3.2 mEq/L (3.5-5.1); Protein, Total 4.7 g/dL (6.4-8.2)
--- NOTE | 2024-07-24 08:40 | P.PN ---
Subjective Date of Service: 07/24/24 Primary Care Provider: July Chief Complaint: Respiratory failure Subjective: No new changes Review of Systems 10-point ROS is otherwise unremarkable Physical Examination - Vital Signs Temperature: 97.4 F Blood Pressure: 132/68 Pulse: 74 Respirations: 18 Pulse Ox (%): 100 - Physical Exam General: Alert, In no apparent distress HEENT: Atraumatic, PERRLA, EOMI Neck: Supple, JVD not distended Respiratory: Clear to auscultation bilaterally, Normal air movement Cardiovascular: Regular rate/rhythm, Normal S1 S2 Gastrointestinal: Normal bowel sounds, No tenderness Musculoskeletal: No tenderness Integumentary: No rashes Neurological: Normal speech, Normal tone, Normal affect Lymphatics: No axilla or inguinal lymphadenopathy Assessment And Plan - Current Problems (Diagnosis) (1) Hypoxia Current Visit: Yes Status: Acute Plan: possible aspiration vs. DVT,. Will recheck the xray. CT angiogram ordered by Dr. Castillo 07/24 resolved no PE , will treat the pneumonia (2) Acute renal failure Current Visit: Yes Status: Resolved Plan: will start fluid bolus for the kidney function and hypotenson Qualifiers: Acute renal failure type: unspecified Qualified Code(s): N17.9 - Acute kidney failure, unspecified (3) Dementia Current Visit: Yes Status: Acute Qualifiers: Dementia type: unspecified type Dementia severity: severe Dementia behavioral or psychological symptom: without behavioral, psychotic, or mood disturbance or anxiety Qualified Code(s): F03.C0 - Unspecified dementia, severe, without behavioral disturbance, psychotic disturbance, mood disturbance, and anxiety (4) Small bowel obstruction Current Visit: Yes Status: Acute Plan: NG tube in place. Will add levoquin. She did not have a wbc last night. Now it is at 27K 11.11 possible removal of the NG tube today Discharge Plan: Home Plan to discharge in: Greater than 2 days - Code Status/Comfort Care Code Status Assessed: No Physician Review: Patient Assessed, Agree with Above Assessment and Plan Critical Care: Yes Time Spent Managing PTS Care (In Minutes): 20
[2024-07-24] MEDS: ENOXAPARIN 40 MG/0.4 ML SQ SCH (08:44)
[2024-07-24] MEDS: KCL 20 MEQ/100 mL IVPB 100 ML IV SCH (08:44)
[2024-07-24] MEDS ORDERED: KCL 20 MEQ/100 mL IVPB 20 MEQ/100 ML BAG IV SCH (09:00)
--- NOTE | 2024-07-24 11:53 | P.PN ---
Subjective Date of Service: 07/24/24 Primary Care Provider: July Chief Complaint: Respiratory failure Patient is currently improving patient improving Review of Systems is unable to be obtained Physical Examination - Vital Signs Temperature: 97.4 F Blood Pressure: 139/56 Pulse: 77 Respirations: 18 Pulse Ox (%): 100 - Physical Exam General: Unresponsive Respiratory: Clear to auscultation bilaterally Cardiovascular: No edema, Regular rate/rhythm Assessment And Plan - Current Problems (Diagnosis) (1) Respiratory failure Current Visit: Yes Status: Acute Plan: Patient's respiratory failure is improving patient has pneumonia hyponatremic hypokalemic white count is declining cultures negative replace potassium patient is on TPN stable to be transferred to the floor patient is currently on 99% sat 1 L oxygen. LTAC Qualifiers: Chronicity: unspecified Physician Review: Patient Assessed, Agree with Above Assessment and Plan
[2024-07-24 19:09] LABS: Anion Gap 8.7 mEq/L (5.0-15.0); Potassium 3.7 mEq/L (3.5-5.1)
[2024-07-25 06:21] LABS: Absolute Eosinophils 0.3 K/uL (0-0.5); Absolute Monocytes 0.8 K/uL (0.1-1.3); Absolute Neutrophil 9.4 K/uL (1.8-8.0); Basophils % 0.3 % (0-1.3); Eosinophils % 2.4 % (0-4.4); Hemoglobin 9.1 g/dL (12.0-15.0); Lymphocytes % 8.3 % (15.3-44.8); MCHC 33.5 g/dL (32.0-36.0); MCV 89.5 fL (80-100); MPV 7.3 fL (7.6-11.3); Monocytes % 7.3 % (3.3-12.3); Neutrophils % 81.7 % (41.7-73.7); Platelets 237 thou/uL (152-406); RBC Red Blood Cell Count 3.02 M/uL (3.86-4.86); Red Cell Distribution Width 13.4 % (12.1-15.2)
[2024-07-25 06:44] LABS: Albumin 1.9 g/dL (3.4-5.0); Albumin/Globulin Ratio 0.5 (1.1-1.8); Anion Gap 11.1 mEq/L (5.0-15.0); Bilirubin Total 0.8 mg/dL (0.2-1.0); Globulin 3.5 g/dL (2.3-3.5); Potassium 3.1 mEq/L (3.5-5.1); Protein, Total 5.4 g/dL (6.4-8.2)
[2024-07-25 06:51] LABS: Phosphorus 1.5 mg/dL (2.5-4.9)
[2024-07-25] MEDS: KCL 20 MEQ/100 mL IVPB 20 MEQ/100 ML BAG IV SCH ×2 (07:52→23:18)
--- NOTE | 2024-07-25 08:43 | P.PN ---
Subjective Date of Service: 07/25/24 Primary Care Provider: July Chief Complaint: Respiratory failure Subjective: Improving Review of Systems is unable to be obtained Physical Examination - Vital Signs Temperature: 97.2 F Blood Pressure: 123/58 Pulse: 71 Respirations: 17 Pulse Ox (%): 99 - Physical Exam General: Unresponsive HEENT: Atraumatic, PERRLA, EOMI Neck: Supple, JVD not distended Respiratory: Clear to auscultation bilaterally, Normal air movement Cardiovascular: Regular rate/rhythm, Normal S1 S2 Gastrointestinal: Normal bowel sounds, No tenderness Musculoskeletal: No tenderness Integumentary: No rashes Neurological: Normal speech, Normal tone, Normal affect Lymphatics: No axilla or inguinal lymphadenopathy Assessment And Plan - Current Problems (Diagnosis) (1) Acute renal failure Current Visit: Yes Status: Resolved Plan: will start fluid bolus for the kidney function and hypotenson Qualifiers: Acute renal failure type: unspecified Qualified Code(s): N17.9 - Acute kidney failure, unspecified (2) Dementia Current Visit: Yes Status: Acute Qualifiers: Dementia type: unspecified type Dementia severity: severe Dementia behavioral or psychological symptom: without behavioral, psychotic, or mood disturbance or anxiety Qualified Code(s): F03.C0 - Unspecified dementia, severe, without behavioral disturbance, psychotic disturbance, mood disturbance, and anxiety (3) Small bowel obstruction Current Visit: Yes Status: Acute Plan: NG tube in place. Will add levoquin. She did not have a wbc last night. Now it is at 27K 11.11 possible removal of the NG tube today (4) Hypoxia Current Visit: Yes Status: Resolved Plan: possible aspiration vs. DVT,. Will recheck the xray. CT angiogram ordered by Dr. Castillo 07/24 resolved no PE , will treat the pneumonia Discharge Plan: LTAC Plan to discharge in: Greater than 2 days - Code Status/Comfort Care Code Status Assessed: No Physician Review: Patient Assessed, Agree with Above Assessment and Plan Critical Care: No Time Spent Managing PTS Care (In Minutes): 25
[2024-07-25] MEDS: POTASSIUM PHOS IN 0.9 % NACL 15 MMOL/250 ML BAG IV SCH (10:01)
[2024-07-25] MEDS ORDERED: LEVALBUTEROL 1.25 MG/3 ML NEB NEB PRN (11:52)
--- NOTE | 2024-07-25 11:53 | P.PN ---
Subjective Date of Service: 07/25/24 Primary Care Provider: July Chief Complaint: Pneumonia Patient is doing much better alert responsive cooperative hold a conversation asking for something to drink son at the bedside Review of Systems General: Weakness Respiratory: Shortness of Breath Physical Examination - Vital Signs Temperature: 97.2 F Blood Pressure: 123/58 Pulse: 71 Respirations: 17 Pulse Ox (%): 99 - Physical Exam General: Alert, Oriented x3 Cardiovascular: No edema, Regular rate/rhythm Assessment And Plan - Current Problems (Diagnosis) (1) Respiratory failure Current Visit: Yes Status: Acute Plan: Patient's respiratory failure has resolved is most likely secondary to bilateral pneumonia improving patient awaiting a swallow study will try and advance diet if approved by general surgery white count is declining continue with Zosyn patient is currently on TPN has electrolyte imbalance cultures are so far negative oxygenation satisfactory DC BiPAP Qualifiers: Chronicity: unspecified Physician Review: Patient Assessed, Agree with Above Assessment and Plan
--- NOTE | 2024-07-25 18:29 | P.PN ---
Date of Service: 07/25/24 spoken with son Napoleon Alston. He feels the patient is getting weaker and weaker over the past year. Does not see her recovering. She told him that she longs to be in [place]. This is end of life care. Will have hospice contact the patient
--- NOTE | 2024-07-25 20:30 | PN ---
Date of Progress Note: 07/25/2024 Diagnosis: Small bowel obstruction, status post laparotomy and emergent bowel resection. Subjective: Doing great from the surgical standpoint. Today, more responsive. She is back in the [place], receiving rehabilitation. Objective: Abdomen: Soft and depressible. Bowel sounds positive. Extremities: Good capillary refill. No calf tenderness. Laboratory Data: From the blood work, WBC count of 11.5, hemoglobin of 9.1. Potassium 3.1. Plan: From the surgical standpoint, advance diet, rehab, SCDs. HM/MODL Voice ID: [id number] Report ID: [id number]
[2024-07-25] MEDS: NA CHLORIDE 0.9% 250 ML ONE (23:12)
[2024-07-26 06:54] LABS: Anion Gap 9.7 mEq/L (5.0-15.0); Phosphorus 1.7 mg/dL (2.5-4.9); Potassium 3.7 mEq/L (3.5-5.1)
--- NOTE | 2024-07-26 10:54 | P.PN ---
Subjective Date of Service: 07/26/24 Primary Care Provider: July Chief Complaint: Pneumonia Patient is doing well alert responsive denies any shortness of breath Review of Systems General: Weakness Respiratory: Shortness of Breath Physical Examination - Vital Signs Temperature: 98.4 F Blood Pressure: 119/58 Pulse: 70 Respirations: 14 Pulse Ox (%): 95 - Physical Exam General: Alert, Oriented x3 Neck: Supple Respiratory: Clear to auscultation bilaterally Cardiovascular: No edema, Regular rate/rhythm Assessment And Plan - Current Problems (Diagnosis) (1) Pneumonia Current Visit: Yes Status: Acute Plan: Patient admitted with bilateral pneumonia is doing much better as diet as tolerated discussed with Dr. Francois count is declining with slowly wean off TPN as diet as tolerated with Zosyn until over the weekend labs chemistries all reviewed cultures are so far negative Qualifiers: Pneumonia type: due to unspecified organism Laterality: bilateral Physician Review: Patient Assessed, Agree with Above Assessment and Plan
--- NOTE | 2024-07-26 14:16 | P.PN ---
Subjective Date of Service: 07/26/24 Primary Care Provider: July Chief Complaint: Pneumonia Subjective: No new changes Review of Systems is unable to be obtained Physical Examination - Vital Signs Temperature: 98.1 F Blood Pressure: 120/88 Pulse: 71 Respirations: 14 Pulse Ox (%): 99 - Physical Exam General: Alert, In no apparent distress HEENT: Atraumatic, PERRLA, EOMI Neck: Supple, JVD not distended Respiratory: Clear to auscultation bilaterally, Normal air movement Cardiovascular: Regular rate/rhythm, Normal S1 S2 Gastrointestinal: Normal bowel sounds, No tenderness Musculoskeletal: No tenderness Integumentary: No rashes Neurological: Normal speech, Normal tone, Normal affect Lymphatics: No axilla or inguinal lymphadenopathy Assessment And Plan - Current Problems (Diagnosis) (1) Small bowel obstruction Current Visit: Yes Status: Acute Plan: NG tube in place. Will add levoquin. She did not have a wbc last night. Now it is at 27K 11.11 possible removal of the NG tube today (2) End of life care Current Visit: Yes Status: Acute Plan: Patient has expressed a desire to be in [place]" to her son. We have had hospice contact them. Spoken to the son this morning. He agreed to DNR. will proceed with setting this up in [place] (3) Dementia Current Visit: Yes Status: Acute Qualifiers: Dementia type: unspecified type Dementia severity: severe Dementia behavioral or psychological symptom: without behavioral, psychotic, or mood disturbance or anxiety Qualified Code(s): F03.C0 - Unspecified dementia, severe, without behavioral disturbance, psychotic disturbance, mood disturbance, and anxiety (4) Hypoxia Current Visit: Yes Status: Resolved Plan: possible aspiration vs. DVT,. Will recheck the xray. CT angiogram ordered by Dr. Castillo 07/24 resolved no PE , will treat the pneumonia (5) Acute renal failure Current Visit: Yes Status: Resolved Plan: will start fluid bolus for the kidney function and hypotenson Qualifiers: Acute renal failure type: unspecified Qualified Code(s): N17.9 - Acute kidney failure, unspecified Discharge Plan: Home Plan to discharge in: 24 Hours - Code Status/Comfort Care Code Status Assessed: No Code Status: Do Not Attempt Resuscitat Comfort Measures: Hospice Care Physician Review: Patient Assessed, Agree with Above Assessment and Plan Critical Care: No Time Spent Managing PTS Care (In Minutes): 25
--- NOTE | 2024-07-27 13:22 | P.PN ---
Subjective Date of Service: 07/27/24 Primary Care Provider: July Chief Complaint: Pneumonia Subjective: No new changes Review of Systems is unable to be obtained Physical Examination - Vital Signs Temperature: 98.4 F Blood Pressure: 111/55 Pulse: 64 Respirations: 16 Pulse Ox (%): 98 Assessment And Plan - Current Problems (Diagnosis) (1) Small bowel obstruction Current Visit: Yes Status: Acute Plan: NG tube in place. Will add levoquin. She did not have a wbc last night. Now it is at 27K 11.11 possible removal of the NG tube today (2) End of life care Current Visit: Yes Status: Acute Plan: Patient has expressed a desire to be in [place]" to her son. We have had hospice contact them. Spoken to the son this morning. He agreed to DNR. will proceed with setting this up in [place] (3) Dementia Current Visit: Yes Status: Acute Qualifiers: Dementia type: unspecified type Dementia severity: severe Dementia behavioral or psychological symptom: without behavioral, psychotic, or mood disturbance or anxiety Qualified Code(s): F03.C0 - Unspecified dementia, severe, without behavioral disturbance, psychotic disturbance, mood disturbance, and anxiety (4) Hypoxia Current Visit: Yes Status: Resolved Plan: possible aspiration vs. DVT,. Will recheck the xray. CT angiogram ordered by Dr. Castillo 07/24 resolved no PE , will treat the pneumonia (5) Acute renal failure Current Visit: Yes Status: Resolved Plan: will start fluid bolus for the kidney function and hypotenson Qualifiers: Acute renal failure type: unspecified Qualified Code(s): N17.9 - Acute kidney failure, unspecified Discharge Plan: LTAC Plan to discharge in: 24 Hours - Code Status/Comfort Care Code Status Assessed: No Physician Review: Patient Assessed, Agree with Above Assessment and Plan Critical Care: No Time Spent Managing PTS Care (In Minutes): 20
[2024-07-28] MEDS: levoFLOXacin 750 MG TAB PO SCH (08:23)
[2024-07-28 08:59] VITALS: O2SAT 91
[2024-07-28 09:38] LABS: Hematocrit 27.8 % (36.0-45.0); Hemoglobin 9.6 g/dL (12.0-15.0); MCH 30.2 pg (27.0-35.0); MCHC 34.4 g/dL (32.0-36.0); MCV 87.7 fL (80-100); MPV 6.7 fL (7.6-11.3); Platelets 312 thou/uL (152-406); RBC Red Blood Cell Count 3.17 M/uL (3.86-4.86); Red Cell Distribution Width 13.5 % (12.1-15.2)
--- NOTE | 2024-07-28 13:54 | P.PN ---
Subjective Date of Service: 07/28/24 Primary Care Provider: July Chief Complaint: Pneumonia Subjective: Improving (awake this morning. States she does not want to . She had some jello this morning) Review of Systems 10-point ROS is otherwise unremarkable General: Weakness Physical Examination - Vital Signs Temperature: 97.6 F Blood Pressure: 125/58 Pulse: 66 Respirations: 12 Pulse Ox (%): 95 - Physical Exam General: Alert, In no apparent distress HEENT: Atraumatic, PERRLA, EOMI Neck: Supple, JVD not distended Respiratory: Clear to auscultation bilaterally, Normal air movement Cardiovascular: Regular rate/rhythm, Normal S1 S2 Gastrointestinal: Normal bowel sounds, No tenderness Musculoskeletal: No tenderness Integumentary: No rashes Neurological: Normal speech, Normal tone, Normal affect Lymphatics: No axilla or inguinal lymphadenopathy Assessment And Plan - Current Problems (Diagnosis) (1) Small bowel obstruction Current Visit: Yes Status: Acute Plan: NG tube in place. Will add levoquin. She did not have a wbc last night. Now it is at 27K 11.18 Patient is awake and eating. Will reheck her swallow study (2) End of life care Current Visit: Yes Status: Acute Plan: Patient has expressed a desire to be in [place]" to her son. We have had hospice contact them. Spoken to the son this morning. He agreed to DNR. will proceed with setting this up in [place] (3) Dementia Current Visit: Yes Status: Acute Qualifiers: Dementia type: unspecified type Dementia severity: severe Dementia behavioral or psychological symptom: without behavioral, psychotic, or mood disturbance or anxiety Qualified Code(s): F03.C0 - Unspecified dementia, severe, without behavioral disturbance, psychotic disturbance, mood disturbance, and anxiety (4) Severe protein-energy malnutrition Current Visit: Yes Status: Acute Plan: will order snf or ltac for the patient. She will need this for recovery. She does not want hospice. Have called her son and discussed this with him (5) Pneumonia Current Visit: Yes Status: Acute Plan: continue zosyn Qualifiers: Pneumonia type: due to unspecified organism Laterality: bilateral Discharge Plan: LTAC - Code Status/Comfort Care Code Status Assessed: No Physician Review: Patient Assessed, Agree with Above Assessment and Plan Critical Care: No Time Spent Managing PTS Care (In Minutes): 30
[2024-07-29] MEDS ORDERED: HYDROCODONE/APAP 5/325 MG TAB PO PRN (00:13)
[2024-07-29] MEDS: MORPHINE 2 MG/ML SYR IV PRN (00:42)
[2024-07-29 08:38] VITALS: BP 136/62; TEMP 97.6
--- NOTE | 2024-07-29 09:26 | P.DS ---
Admission Date: 07/16/24 Discharge Date: 07/29/24 Primary Care Provider: July Disposition: HOSPICE-HOME Reason for Admission: Pneumonia - Problems (1) Small bowel obstruction Current Visit: Yes Status: Acute (2) End of life care Current Visit: Yes Status: Acute (3) Dementia Current Visit: Yes Status: Acute Qualifiers: Dementia type: unspecified type Dementia severity: severe Dementia behavioral or psychological symptom: without behavioral, psychotic, or mood disturbance or anxiety Qualified Code(s): F03.C0 - Unspecified dementia, severe, without behavioral disturbance, psychotic disturbance, mood disturbance, and anxiety (4) Severe protein-energy malnutrition Current Visit: Yes Status: Acute (5) Pneumonia Current Visit: Yes Status: Acute Qualifiers: Pneumonia type: due to unspecified organism Laterality: bilateral Brief History of Present Illness: Patient of mine in [facility] assisted living. She had pain and abdominal distention yesterday per the home health nurse. She has chronic dementia. Has been poorly mobile after a spinal compression fracture. She was brought to the ER. Found to have a small bowel obstruction. Was admitted with an NG tube. Consult to Dr Francois. This morning she has an elevated wbc, low bp and elevated creatine Hospital Course: Patient was admitted for nausea. Found to have a bowel obstruction. She had surgery with Dr. Francois for adhesions. The patient was placed on TPN. Discussed with son for hospice. She improved with tpn. Stated she wanted to live. She discussed with her son. She has a very poor prognosis. There was some miscommunications. However met with the son last night. Discussed with him. She is appropriate for hospice. She does not want to be in [place] for LTAC. Will proceed with hospice. Will d/c magdaleno and TPN. This was discussed with the son. Thank you for allowing me to take part in her care. Vital Signs/Physical Exam: Temp Pulse Resp BP Pulse Ox 97.6 F 60 16 136/62 98 07/29/24 08:00 07/29/24 08:00 07/29/24 08:00 07/29/24 08:00 07/29/24 08:00 General: Alert, In no apparent distress HEENT: Atraumatic, PERRLA, EOMI Neck: Supple, JVD not distended Respiratory: Clear to auscultation bilaterally, Normal air movement Cardiovascular: Regular rate/rhythm, Normal S1 S2 Gastrointestinal: Normal bowel sounds, No tenderness Musculoskeletal: No tenderness Integumentary: No rashes Neurological: Normal speech, Normal tone, Normal affect Lymphatics: No axilla or inguinal lymphadenopathy Laboratory Data at Discharge: WBC 11.50 thou/uL (4.3-10.9) H 07/28/24 09:18 Hgb 9.6 g/dL (12.0-15.0) L 07/28/24 09:18 Hct 27.8 % (36.0-45.0) L 07/28/24 09:18 Plt Count 312 thou/uL (152-406) 07/28/24 09:18 Sodium 131 mEq/L (136-145) L D 07/26/24 06:29 Potassium 3.7 mEq/L (3.5-5.1) D 07/26/24 06:29 BUN 17 mg/dL (7-18) 07/26/24 06:29 Creatinine 0.39 mg/dL (0.55-1.02) L 07/26/24 06:29 Glucose 102 mg/dL (74-106) 07/26/24 06:29 Phosphorus 1.7 mg/dL (2.5-4.9) L 07/26/24 06:29 Total Bilirubin 0.8 mg/dL (0.2-1.0) 07/25/24 06:14 AST 25 U/L (15-37) 07/25/24 06:14 ALT 35 U/L (13-56) 07/25/24 06:14 Alkaline Phosphatase 193 U/L (45-117) H D 07/25/24 06:14 Lipase 78 U/L (13-75) H 07/16/24 15:56 Home Medications: Acetaminophen [Tylenol] 650 mg PO Q4HP PRN 06/23/24 Ascorbate Calcium [Vitamin C] 1 tab PO DAILY 06/23/24 Calcium Carbonate [Calcium] 500 mg PO BID PRN 06/23/24 Cetirizine HCl [Zyrtec] 10 mg PO DAILY PRN 06/23/24 Cholecalciferol (Vitamin D3) [Vitamin D 5,000 IU Cap*] 5,000 unit PO DAILY 06/23/24 Cyanocobalamin (Vitamin B-12) [Vitamin B-12] 1 tab PO DAILY 06/23/24 Ferrous Sulfate 325 mg PO DAILY 06/23/24 Hydralazine [Apresoline*] 25 mg PO TID PRN 06/23/24 Ibuprofen 400 mg PO Q4HP PRN 06/23/24 Lactobacillus Acidophilus 1 each PO DAILY 06/23/24 Lactulose 20 gm PO DAILY PRN 06/23/24 Losartan Potassium [Cozaar] 1 tab PO DAILY 06/23/24 Melatonin 6 mg PO BEDTIME PRN 06/23/24 Multivit-Min/FA/Lycopen/Lutein [Centrum Silver Tablet] 1 each PO DAILY 06/23/24 Polyethylene Glycol 3350 [Miralax] 1 packet PO DAILY 06/23/24 Potassium Chloride 20 meq PO DAILY 06/23/24 Sennosides [Senna] 8.6 mg PO BID 06/23/24 Gabapentin 300 mg PO BID #60 07/02/24 Lidocaine 4% Patch [Lidoderm 5% Patch*] 2 patch TOP DAILY pat 07/02/24 traMADol HCL [Ultram*] 50 mg PO Q4H PRN #60 tab 07/02/24 Diet: comfort Activity: Fall precautions Followup: Ministerio Mcdowell MD [Primary Care Provider] - 1-2 Weeks Time spent managing pt's care (in minutes): 40
== END 2024-07-29 10:13 | disposition hospice, inpatient (51) | DRG 853 ==
LOC: ER 15:28 → 2ND 20:15 → 3RD-ICU 07-17 09:01 → 2ND 07-20 09:11 → 3RD-ICU 07-22 12:51 → 2ND 07-24 14:05
PROVIDERS: ADMIT Internal Medicine; ATTEND Internal Medicine
PROC: 0DNU0ZZ Release Omentum, Open Approach (ICD-10-PCS; 2024-07-17)
PROC: 02HV33Z Insertion of Infusion Device into Superior Vena Cava, Percutaneous Approach (ICD-10-PCS; 2024-07-17)
PROC: 3E0436Z Introduction of Nutritional Substance into Central Vein, Percutaneous Approach (ICD-10-PCS; 2024-07-17)
PROC: 0DB80ZZ Excision of Small Intestine, Open Approach (ICD-10-PCS; principal; 2024-07-17 10:30)
PROC: 0DH67UZ Insertion of Feeding Device into Stomach, Via Natural or Artificial Opening (ICD-10-PCS; 2024-07-19)
PROC: 4A033R1 Measurement of Arterial Saturation, Peripheral, Percutaneous Approach (ICD-10-PCS; 2024-07-22)
PROC: 5A09457 Assistance with Respiratory Ventilation, 24-96 Consecutive Hours, Continuous Positive Airway Pressure (ICD-10-PCS; 2024-07-22)
PROC: 5A0955A Assistance with Respiratory Ventilation, Greater than 96 Consecutive Hours, High Flow/Velocity Cannula (ICD-10-PCS; 2024-07-22)
DX: A41.9 Sepsis, unspecified organism (principal); J69.0 Pneumonitis due to inhalation of food and vomit; K65.9 Peritonitis, unspecified; J96.01 Acute respiratory failure with hypoxia; K56.609 Unspecified intestinal obstruction, unspecified as to partial versus complete obstruction; E44.0 Moderate protein-calorie malnutrition; Z68.1 Body mass index [BMI] 19.9 or less, adult; N17.9 Acute kidney failure, unspecified; K55.9 Vascular disorder of intestine, unspecified; R65.20 Severe sepsis without septic shock; L89.151 Pressure ulcer of sacral region, stage 1; K66.0 Peritoneal adhesions (postprocedural) (postinfection); I10 Essential (primary) hypertension; F03.C0 Unspecified dementia, severe, without behavioral disturbance, psychotic disturbance, mood disturbance, and anxiety; T17.908A Unspecified foreign body in respiratory tract, part unspecified causing other injury, initial encounter; Z51.5 Encounter for palliative care; Z79.899 Other long term (current) drug therapy
CPT/HCPCS: 36415; 36569; 36600; 71045; 71046; 71275; 74177; 80048; 80053; 80076; 81001; 82805; 82947; 83690; 84100; 84132; 85025; 85027; 87040; 88307; 92610; 93306; 94010; 94640; 94660; 96365; 96372; 96375; 97110; 97161; 97530; 99285; J0171; J0360; J0500; J1100; J1171; J1650; J2270; J2405; J2543; J2704; J3010; J3480; J7040; J7050; J7120; J7608; J7614; J7799; Q9967